=== PATIENT | female | born 1960 | race Caucasian/White ===

== ENCOUNTER 2018-09-02 01:04 | Emergency (ER) | payer SELFPAY ==
[2018-09-02] MEDS ORDERED: ASPIRIN 81 MG TABLET, CHEWABLE PO ONE (02:31)
--- NOTE | 2018-09-02 02:46 | ER Document Report ---
ED General - General Chief Complaint: Chest Pain Stated Complaint: CHEST PAIN Time Seen by Provider: 09/02/18 02:45 Primary Care Provider: JOSHUA HOLCOMB MD [ACTIVE STAFF] - Follow up in 3-5 days (call the office this morning to make a close follow up appointment.) NIECY NY MD [ACTIVE STAFF] - Follow up in 3-5 days (call office this am to make a close follow up appointment) Notes: Patient is a 57-year-old female presents with complaint of chest pain. Patient states she was watching TV and had some chest tightness and felt as if she could not breathe. Patient says that she has been very stressed and her stress was building up all night. She feels that this is stress related. She has no history of coronary disease. She does have a heart murmur but is unsure what causes heart heart murmur. She has had the murmur for over 5 years. She has no history of high blood pressure. No history of diabetes. She does have some family history of coronary disease. She says her symptoms eventually resolved when she relaxes. She currently does not have any symptoms at this time. TRAVEL OUTSIDE OF THE [place] IN LAST 30 DAYS: No - Related Data Allergies/Adverse Reactions: hypochlorous acid [From Alevicyn Dermal] Allergy (Verified 09/02/18 02:17) meperidine [From Demerol] Allergy (Verified 09/02/18 02:16) sodium chloride [From Alevicyn Dermal] Allergy (Verified 09/02/18 02:17) sodium phosphate [From Alevicyn Dermal] Allergy (Verified 09/02/18 02:17) sodium sulfate [From Alevicyn Dermal] Allergy (Verified 09/02/18 02:17) Past Medical History - Social History Smoking Status: Current Some Day Smoker Chew tobacco use (# tins/day): No Frequency of alcohol use: None Drug Abuse: None Family History: Reviewed & Not Pertinent Patient has suicidal ideation: No Patient has homicidal ideation: No Renal/ Medical History: Denies: Hx Peritoneal Dialysis Past Surgical History: Reports: Hx Appendectomy, Hx Hysterectomy Review of Systems - Review of Systems Notes: My Normal Review Basic REVIEW OF SYSTEMS: CONSTITUTIONAL : Denies fever, chills, or sweats. Denies recent illness. EENT: Denies eye, ear, throat, or mouth pain or symptoms. Denies nasal or sinus congestion. CARDIOVASCULAR: Chest tightness. RESPIRATORY: [place] short of breath. GASTROINTESTINAL: Denies abdominal pain. Denies nausea, vomiting, or diarrhea. MUSCULOSKELETAL: Denies neck or back pain or joint pain or swelling. SKIN: Denies rash or skin lesions. NEUROLOGICAL: Denies altered mental status or loss of consciousness. Denies headache. Denies weakness or paralysis or loss of use of either side. Denies problems with gait or speech. Denies sensory or motor loss. ALL OTHER SYSTEMS REVIEWED AND NEGATIVE. Physical Exam - Vital signs Vitals: Temp Pulse Resp BP Pulse Ox 97.7 F 95 20 152/90 H 98 09/02/18 01:18 09/02/18 01:18 09/02/18 01:18 09/02/18 01:18 09/02/18 01:18 - Notes Notes: General Appearance: Well nourished, alert, cooperative, no acute distress, no o bvious discomfort. Well-appearing. Vitals: reviewed, See vital signs table. Head: no swelling or tenderness to the head Eyes: PERRL, EOMI, Conjuctiva clear Mouth: No decreasd moisturephadenopathy Neck: Supple, no neck tenderness, No thyromegaly Lungs: No wheezing, No rales, No rhonci, No accessory muscle use, good air exchange bilaterally. Heart: Normal rate, Regular rythm, systolic murmur heard best over the right sternal border. Abdomen: Normal BS, soft, No rigidity, No abdominal tenderness, No guarding, no rebound, no abdominal masses, no organomegaly Extremities:good pulses in all extremities, no swelling or tenderness in the extremities, no edema. Skin: warm, dry, appropriate color, no rash Neuro: speech clear, oriented x 3, normal affect, responds appropriately to questions. Course - Re-evaluation Re-evalutation: 09/02/18 03:56 Patient's blood work has come back. I told her I have multiple concerns for her being that should her hemoglobin is only 7.1. She does not remember having history of anemia in the past. She said the last time she had a blood work done was a year and a half ago. She just recently moved down here so she does not have a doctor in the area. She says that she does have a lot of stress and anxiety her life which does cause to have difficulty sleeping. She says she just wants to go home. I did recommend that we do a guaiac stool test to see if there is any evidence of blood in her stool. She refuses. I recommend her staying for admission so that we could give her blood transfusion and to follow her cardiac enzymes. She refuses this as well. Informed her that even though that her chest pain seems like it is probably related to stress I still cannot rule out the possibility of the pain coming from her heart especially since she is so anemic. Explained this to her and her . They both show understanding of this but patient says that she does not want to stay and that she wants to go home. She said she would follow-up closely with any doctor I refer her to. I informed her and her that worsening anemia could cause ischemia to her heart which could cause a heart attack. Explained to her that hemoglobin is what carries oxygen to all the vital organs and therefore it is necessary that it is at a appropriate level. She shows understanding of this but still refuses to stay. I informed her that even though she is leaving AGAINST MEDICAL ADVICE I would start her on iron supplementation and refer her to hematology and cardiology as I feel this is what is best for her. I informed her that we want what is best for her and that we would be happy to reevaluate her at any time and in fact encouraged her return to ER anytime soon so we can recheck her and do further workup as to why her hemoglobin is low and also to evaluate her for her chest pain. Patient shows appreciation of this and will be discharged as she requests. She request something to help her sleep. I will give her a few tablets of Vistaril to go home with. I strongly encouraged her return to ER anytime and to follow-up with the providers have referred her to. Patient has good linear thought process is able to answer all my questions appropriately and show understanding of what I am telling her. Patient not show any evidence of confusion and does not demonstrate abnormal thought process and therefore I do not feel that I can keep her against her will. Dictation of this chart was performed using voice recognition software; therefore, there may be some unintended grammatical errors. - Vital Signs Vital signs: Temp Pulse Resp BP Pulse Ox 97.7 F 95 16 136/86 H 97 09/02/18 01:18 09/02/18 01:18 09/02/18 02:01 09/02/18 02:01 09/02/18 02:32 - Laboratory Result Diagrams: 09/02/18 01:57 09/02/18 01:57 Laboratory results interpreted by me: 09/02/18 09/02/18 01:57 01:57 RBC 3.38 L Hgb 7.1 L Hct 23.4 L MCV 69 L MCH 20.9 L MCHC 30.2 L RDW 18.8 H Sodium 146.7 H Chloride 111 H AST 115 H Alkaline Phosphatase 166 H Creatine Kinase 185 H - EKG Interpretation by Me Additional EKG results interpreted by me: 09/02/18 02:45 EKG is reviewed and interpreted by me. EKG shows sinus rhythm with a rate of [address] segment elevation or depression. No ischemic T wave inversions. [place] interval, QRS duration, QT intervals are within normal range. Old EKG for comparison is unavailable at this time. Discharge - Discharge Clinical Impression: Anxiety Anemia Qualifiers: Anemia type: unspecified type Qualified Code(s): D64.9 - Anemia, unspecified Chest pain Qualifiers: Chest pain type: unspecified Qualified Code(s): R07.9 - Chest pain, unspecified Insomnia Qualifiers: Insomnia type: unspecified Qualified Code(s): G47.00 - Insomnia, unspecified Disposition: AGAINST MEDICAL ADVICE Additional Instructions: You have very low hemoglobin. You hemoglobin is at a level where we would consider giving you blood. As discussed with you, I do not know the exact cause of why your hemoglobin is low. This could be related to low iron or could be related to you losing blood somewhere in your body. The most likely source of losing blood would be the gastrointestinal tract. As discussed with you, I recommend admission to the hospital and receiving a unit of blood and to cont inue to look at your heart and to look for sources of bleeding such as doing testing looking at the GI tract. My concern is that worsening low blood counts could lead to things such as heart attack or low blood pressure. I respect your right to make a decision to leave AGAINST MEDICAL ADVICE. We still want what is best for you and therefore want you to return to the ER anytime as we are happy to reevaluate you and help you in any way we can. Being that you are choosing to leave please follow-up closely with the philanthropy officer, Dr. Holcomb, and the marine structural designer, Dr. Jarquin. Please return to the ER anytime for reevaluation. You should immediately return to the ER or call an ambulance if you have recurrent chest pain, difficulty breathing, lightheadedness, passing out episodes, or if you feel unwell in any way. Prescriptions: Docusate Sodium [Colace 100 mg Capsule] 100 mg PO DAILY #30 capsule Ferrous Sulfate [Feosol] 325 mg PO DAILY #30 tablet Referrals: NIECY NY MD [ACTIVE STAFF] - Follow up in 3-5 days (call office this am to make a close follow up appointment) JOSHUA HOLCOMB MD [ACTIVE STAFF] - Follow up in 3-5 days (call the office this morning to make a close follow up appointment.)
[2018-09-02 03:04] LABS: HEMATOCRIT 23.4 % (36.0-47.0); MEAN CORPUSCULAR HEMOGLOBIN 20.9 pg (27.0-33.4); MEAN CORPUSCULAR HGB CONC 30.2 g/dL (32.0-36.0); MEAN CORPUSCULAR VOLUME 69 fl (80-97); PLATELET COUNT 216 10^3/uL (150-450); RED BLOOD COUNT 3.38 10^6/uL (3.72-5.28); RED CELL DISTRIBUTION WIDTH 18.8 % (11.5-14.0); WHITE BLOOD COUNT 4.2 10^3/uL (4.0-10.5)
[2018-09-02 03:07] LABS: ALANINE AMINOTRANSFERASE 39 U/L (9-52); ALBUMIN 4.4 g/dL (3.5-5.0); ALKALINE PHOSPHATASE 166 U/L (38-126); ANION GAP 11 (5-19); ASPARTATE AMINO TRANSFERASE 115 U/L (14-36); BILIRUBIN,DIRECT 0.3 mg/dL (0.0-0.4); BILIRUBIN,TOTAL 0.4 mg/dL (0.2-1.3); BLOOD UREA NITROGEN 10 mg/dL (7-20); CALCIUM 8.4 mg/dL (8.4-10.2); CARBON DIOXIDE 25 mmol/L (22-30); CHLORIDE 111 mmol/L (98-107); CREATINE KINASE 185 U/L (30-135); GLUCOSE 92 mg/dL (75-110); POTASSIUM 3.8 mmol/L (3.6-5.0); SODIUM 146.7 mmol/L (137-145); TOTAL PROTEIN 7.5 g/dL (6.3-8.2)
[2018-09-02 03:19] LABS: HEMOGLOBIN 7.1 g/dL (12.0-15.5)
[2018-09-02 03:22] LABS: ABSOLUTE LYMPHOCYTES# (MANUAL) 1.2 10^3/uL (0.5-4.7); ABSOLUTE MONOCYTES # (MANUAL) 0.3 10^3/uL (0.1-1.4); ABSOLUTE NEUTROPHILS# (MANUAL) 2.7 10^3/uL (1.7-8.2); ANISOCYTOSIS 2+; BASOPHILS % (MANUAL) 0 % (0-2); EOSINOPHILS % (MANUAL) 2 % (0-6); LYMPHOCYTES % (MANUAL) 28 % (13-45); MONOCYTES % (MANUAL) 6 % (3-13); PLATELET COMMENT ADEQUATE; POLYCHROMASIA 2+; SEGMENTED NEUTROPHILS % (MAN) 64 % (42-78); TOTAL CELLS COUNTED 100; TOXIC GRANULATION 1+; TROPONIN I < 0.012 ng/mL
--- NOTE | 2018-09-02 03:48 | RADIOLOGY REPORT (SQ) ---
EXAM DESCRIPTION: XR CHEST 1 VIEW COMPLETED DATE/TME: 09/02/2018 02:31 CLINICAL HISTORY: 57 years, Female, chest pain COMPARISON: None. NUMBER OF VIEWS: 1 TECHNIQUE: Portable chest LIMITATIONS: None. FINDINGS: The heart size is normal. Osteopenia. Atheromatous change thoracic aorta. Lungs are clear. No pneumothorax IMPRESSION: No acute cardiopulmonary process copyright 2010 [employer]- All Rights Reserved
[2018-09-02] MEDS ORDERED: HYDROXYZINE PAMOATE 25 MG CAPSULE (4 CAP/ER DISP) PO PRN (03:53)
[2018-09-02 04:03] VITALS: BP 131/83
--- NOTE | 2018-09-02 21:26 | EKG REPORT ---
SEVERITY:- NORMAL ECG - SINUS RHYTHM : Confirmed by: Sherry Jarquin 02-Sep-2018 21:25:35
== END 2018-09-02 04:15 | disposition left against medical advice (07) ==
LOC: ER 01:04
DX: F41.9 Anxiety disorder, unspecified (principal); D64.9 Anemia, unspecified; G47.00 Insomnia, unspecified; R07.89 Other chest pain; R06.02 Shortness of breath; F17.200 Nicotine dependence, unspecified, uncomplicated; Z82.49 Family history of ischemic heart disease and other diseases of the circulatory system; Z88.8 Allergy status to other drugs, medicaments and biological substances; Z88.5 Allergy status to narcotic agent; Z53.20 Procedure and treatment not carried out because of patient's decision for unspecified reasons
CPT/HCPCS: 93005; 99285; 36415; 82553; 82550; 85025; 80053; 84484; 71045; 93010; J3490

== ENCOUNTER 2018-10-21 13:51 | Outpatient (CLI) | payer OTHER ==
[~2018-10-21 13:51] MED LIST: FERUMOXYTOL (NON-ESRD) 510 MG/NS 100 ML IV PRN; NORMAL SALINE 250 ML IV PRN
[2018-10-21 14:53] VITALS: BP 106/65
== END 2018-10-21 16:09 | disposition home or self-care (01) ==
LOC: II 13:51 → 5TH 13:52 → II 16:09
PROVIDERS: ATTEND Internal Medicine
PROC: 3E02340 Introduction of Influenza Vaccine into Muscle, Percutaneous Approach (ICD-10-PCS; principal; 2018-10-21)
PROC: 3E033GC Introduction of Other Therapeutic Substance into Peripheral Vein, Percutaneous Approach (ICD-10-PCS; 2018-10-21)
DX: D50.8 Other iron deficiency anemias (principal); K90.9 Intestinal malabsorption, unspecified; Z23 Encounter for immunization
CPT/HCPCS: 90686; 96365; 96372; G0008; Q0138; 90471

== ENCOUNTER 2018-10-28 14:02 | Outpatient (CLI) | payer OTHER ==
[2018-10-28 14:46] VITALS: BP 86/62
== END 2018-10-28 15:48 | disposition home or self-care (01) ==
LOC: II 14:02 → 5TH 14:28 → II 15:48
PROVIDERS: ATTEND Internal Medicine
DX: D50.8 Other iron deficiency anemias (principal); K90.9 Intestinal malabsorption, unspecified
CPT/HCPCS: 96367; Q0138

== ENCOUNTER 2019-03-09 13:00 | Inpatient (IN) | payer OTHER ==
[2019-03-09] MEDS ORDERED: NORMAL SALINE 1000 ML 1,000 ML IV ONE ×4 (13:27→15:11)
[2019-03-09] MEDS ORDERED: PANTOPRAZOLE SODIUM 40 MG VIAL IV ONE (13:28)
[2019-03-09] MEDS ORDERED: ONDANSETRON HCL INJ/PF 4 MG/2 ML SDV IV ONE (13:28)
[2019-03-09 13:33] LABS: VENOUS BLOOD BASE EXCESS -1.6 mmol/L; VENOUS BLOOD HCO3 21.2 mmol/L (20-32); VENOUS BLOOD PCO2 29.9 mmHg (35-63); VENOUS BLOOD PH 7.47 (7.30-7.42)
--- NOTE | 2019-03-09 13:34 | ER Document Report ---
ED Medical Screen (RME) - General Stated Complaint: VOMITING Notes: 58-year-old female was brought in by significant other for vomiting coffee- ground emesis and altered mental status. Patient has a long history of alcoholism and bleeding ulcers. Pancreatitis. The patient has now been well as of late. They have noticed that she is become more somnolent. She is been vomiting coffee-ground emesis. Significant other brought her in for evaluation and treatment. TRAVEL OUTSIDE OF THE [place] IN LAST 30 DAYS: No - Related Data Allergies/Adverse Reactions: hypochlorous acid [From Alevicyn Dermal] Allergy (Verified 11/15/18 10:21) meperidine [From Demerol] Allergy (Verified 11/15/18 10:21) sodium chloride [From Alevicyn Dermal] Allergy (Verified 11/15/18 10:21) sodium phosphate [From Alevicyn Dermal] Allergy (Verified 11/15/18 10:21) sodium sulfate [From Alevicyn Dermal] Allergy (Verified 11/15/18 10:21) Past Medical History Renal/ Medical History: Denies: Hx Peritoneal Dialysis Psychiatric Medical History: Reports: Hx Anxiety Past Surgical History: Reports: Hx Appendectomy, Hx Hysterectomy Physical Exam - Notes Notes: Patient is jaundiced. She is altered she will respond to some verbal stimuli all and all painful stimuli. She she has some diminished capillary refill to nailbeds. Blood pressure is 85 systolic. Course - Re-evaluation Re-evalutation: 03/09/19 13:33 Patient comes in with multiple issues. She looks to be an upper GI bleed. She has had bleeding ulcers in the past she is altered will send an ammonia we will send in alcohol. She is hypotensive in the 80s. We will give her 2 L of IV fluids. We will type and screen her. She may be anemic from her GI bleeding. Also will check an ammonia. - Laboratory Result Diagrams: 03/09/19 13:15 03/09/19 13:15
[2019-03-09 13:40] LABS: HEMATOCRIT 35.2 % (36.0-47.0); HEMOGLOBIN 11.5 g/dL (12.0-15.5); MEAN CORPUSCULAR HGB CONC 32.8 g/dL (32.0-36.0); MEAN CORPUSCULAR VOLUME 97 fl (80-97); PLATELET COUNT 162 10^3/uL (150-450); RED BLOOD COUNT 3.61 10^6/uL (3.72-5.28); RED CELL DISTRIBUTION WIDTH 20.6 % (11.5-14.0); WHITE BLOOD COUNT 9.8 10^3/uL (4.0-10.5)
[2019-03-09 13:41] LABS: INTERNATIONAL RATION (INR) 3.01; PROTHROMBIN TIME 31.8 SEC (11.4-15.4)
[2019-03-09 13:55] LABS: ALBUMIN 3.3 g/dL (3.5-5.0); ALKALINE PHOSPHATASE 313 U/L (38-126); ASPARTATE AMINO TRANSFERASE 452 U/L (14-36); BILIRUBIN,DIRECT 13.9 mg/dL (0.0-0.4); BILIRUBIN,TOTAL 15.9 mg/dL (0.2-1.3); BLOOD UREA NITROGEN 47 mg/dL (7-20); CALCIUM 8.8 mg/dL (8.4-10.2); CARBON DIOXIDE 21 mmol/L (22-30); CHLORIDE 85 mmol/L (98-107); POTASSIUM 5.1 mmol/L (3.6-5.0); TOTAL PROTEIN 6.6 g/dL (6.3-8.2)
[2019-03-09 13:56] LABS: CREATINE KINASE 147 U/L (30-135); SALICYLATE 2.3 mg/dL (2.0-20.0)
[2019-03-09 13:57] LABS: ACETAMINOPHEN < 10 ug/mL (10-30); ALCOHOL < 10 mg/dL (NONE DETECTED)
[2019-03-09] MEDS ORDERED: PIPERACILLIN/TAZOBACTAM 3.375 GM VIAL IV ONE (14:09)
[2019-03-09 14:11] LABS: ABSOLUTE LYMPHOCYTES# (MANUAL) 1.7 10^3/uL (0.5-4.7); ABSOLUTE MONOCYTES # (MANUAL) 1.1 10^3/uL (0.1-1.4); BAND NEUTROPHILS % (MANUAL) 2 % (3-5); BASOPHILS % (MANUAL) 0 % (0-2); EOSINOPHILS % (MANUAL) 0 % (0-6); LYMPHOCYTES % (MANUAL) 17 % (13-45); MONOCYTES % (MANUAL) 11 % (3-13); NUCLEATED RED BLOOD CELLS 2 /100 WBC (0); SEGMENTED NEUTROPHILS % (MAN) 70 % (42-78); TOTAL CELLS COUNTED 100
[2019-03-09 14:12] LABS: ANISOCYTOSIS 2+; PLATELET COMMENT ADEQUATE; TARGET CELLS 1+
--- NOTE | 2019-03-09 14:16 | RADIOLOGY REPORT (SQ) ---
EXAM DESCRIPTION: CT HEAD WITHOUT COMPLETED DATE/TIME: 03/09/2019 2:01 pm REASON FOR STUDY: abd pain AMS COMPARISON: None. TECHNIQUE: Axial images acquired through the brain without intravenous contrast. Images reviewed wi th bone, brain and subdural windows. Additional sagittal and coronal reconstructions were generated. Images stored on PACS. All CT scanners at this facility use dose modulation, iterative reconstruction, and/or weight based d osing when appropriate to reduce radiation dose to as low as reasonably achievable (ALARA). [facility]: Dose Right [facility]: CareDose [facility]: Dose Right [facility]: Teradose 4D [facility]: [employer] RADIATION DOSE: CT Rad equipment meets quality standard of care and radiation dose reduction techniq ues were employed. CTDIvol: 53.2 mGy. DLP: 1981 mGy-cm. mGy. LIMITATIONS: None. FINDINGS: VENTRICLES: Normal size and contour. CEREBRUM: No masses. No hemorrhage. No midline shift. No evidence for acute infarction. Normal gra y/white matter differentiation. No areas of low density in the white matter. CEREBELLUM: No masses. No hemorrhage. No alteration of density. No evidence for acute infarction. EXTRAAXIAL SPACES: No fluid collections. No masses. ORBITS AND GLOBE: No intra- or extraconal masses. Normal contour of globe without masses. CALVARIUM: No fracture. PARANASAL SINUSES: No fluid or mucosal thickening. SOFT TISSUES: No mass or hematoma. OTHER: No other significant finding. IMPRESSION: NORMAL BRAIN CT WITHOUT CONTRAST. EVIDENCE OF ACUTE STROKE: NO. COMMENT: Quality ID # 436: Final reports with documentation of one or more dose reduction techniques (e.g., Automated exposure control, adjustment of the mA and/or kV according to patient size, use of iterative reconstruction technique) TECHNICAL DOCUMENTATION: JOB ID: [id number] [employer]- All Rights Reserved Reading location - IP/workstation name: [email or web address]
--- NOTE | 2019-03-09 14:18 | RADIOLOGY REPORT (SQ) ---
EXAM DESCRIPTION: CHEST SINGLE VIEW COMPLETED DATE/TIME: 03/09/2019 2:05 pm REASON FOR STUDY: vomiting COMPARISON: 09/02/2018 EXAM PARAMETERS: NUMBER OF VIEWS: One view. TECHNIQUE: Single frontal radiographic view of the chest acquired. RADIATION DOSE: NA LIMITATIONS: None. FINDINGS: LUNGS AND PLEURA: Low volume examination. No opacities, masses or pneumothorax. No pleura l effusion. MEDIASTINUM AND HILAR STRUCTURES: No masses. Contour normal. HEART AND VASCULAR STRUCTURES: Cardiomegaly. BONES: No acute findings. HARDWARE: None in the chest. OTHER: No other significant finding. IMPRESSION: Cardiomegaly without acute abnormality of the lungs in low volume AP projection. TECHNICAL DOCUMENTATION: JOB ID: [id number] [employer]- All Rights Reserved Reading location - IP/workstation name: [email or web address]
[2019-03-09 14:26] LABS: ANION GAP 25 (5-19)
[2019-03-09 14:27] LABS: GLUCOSE 44 mg/dL (75-110)
[2019-03-09] MEDS ORDERED: DEXTROSE 50%-WATER 25 GM/50 ML DISP.SYRIN IV ONE (14:28)
[2019-03-09 14:42] LABS: APPEARANCE,URINE CLOUDY; BILIRUBIN,URINE MODERATE (NEGATIVE); COLOR,URINE AMBER; GLUCOSE, URINE 50 mg/dL (NEGATIVE); KETONES,URINE TRACE mg/dL (NEGATIVE); LEUKOCYTE ESTERASE,URINE NEGATIVE (NEGATIVE); NITRITE,URINE NEGATIVE (NEGATIVE); PROTEIN,URINE 30 mg/dL (NEGATIVE); URINE SPECIFIC GRAVITY 1.018
--- NOTE | 2019-03-09 14:47 | RADIOLOGY REPORT (SQ) ---
EXAM DESCRIPTION: CT ABD/PELVIS NO ORAL OR IV COMPLETED DATE/TIME: 03/09/2019 2:01 pm REASON FOR STUDY: abd pain AMS COMPARISON: None. TECHNIQUE: CT scan of the abdomen and pelvis performed without intravenous or oral contrast. Images reviewed with lung, soft tissue, and bone windows. Reconstructed coronal and sagittal MPR images revi ewed. All images stored on PACS. All CT scanners at this facility use dose modulation, iterative reconstruction, and/or weight based d osing when appropriate to reduce radiation dose to as low as reasonably achievable (ALARA). [facility]: Dose Right [facility]: CareDose [facility]: Dose Right [facility]: Teradose 4D [facility]: [employer] RADIATION DOSE: CT Rad equipment meets quality standard of care and radiation dose reduction techniq ues were employed. CTDIvol: 14.4 mGy. DLP: 815 mGy-cm.mGy. LIMITATIONS: None. FINDINGS: LOWER CHEST: No significant findings. No nodules or infiltrates. NON-CONTRASTED LIVER, SPLEEN, ADRENALS: There is marked hypoattenuation of the liver. No masses. Th e spleen is normal. The adrenals are normal. PANCREAS: No masses. No peripancreatic inflammatory changes. GALLBLADDER: Surgically absent. RIGHT KIDNEY AND URETER: No suspicious masses. Assessment limited by lack of IV contrast. No signif icant calcifications. No hydronephrosis or hydroureter. LEFT KIDNEY AND URETER: No suspicious masses. Assessment limited by lack of IV contrast. No signifi cant calcifications. No hydronephrosis or hydroureter. AORTA AND RETROPERITONEUM: No aneurysm. No retroperitoneal masses or adenopathy. BOWEL AND PERITONEAL CAVITY: No obvious masses or inflammatory changes. No free fluid. APPENDIX: Not identified. PELVIS, BLADDER, AND ABDOMINAL WALL:No abnormal masses. No free fluid. Bladder normal. BONES: No significant findings. OTHER: No other significant finding. IMPRESSION: There appears to be marked hepatic steatosis. The liver is somewhat heterogeneous. If there is a history of neoplasm, diffuse hepatic metastatic disease cannot be excluded. COMMENT: Quality ID # [id number]: Final reports with documentation of one or more dose reduction techniques (e.g., Automated exposure control, adjustment of the mA and/or kV according to patient size, use of iterative reconstruction technique) TECHNICAL DOCUMENTATION: JOB ID: [id number]- All Rights Reserved Reading location - IP/workstation name: [email or web address]
[2019-03-09 14:53] LABS: URINE AMPHETAMINES SCREEN NEGATIVE; URINE BARBITURATES SCREEN NEGATIVE; URINE BENZODIAZEPINES SCREEN NEGATIVE; URINE COCAINE SCREEN NEGATIVE; URINE MARIJUANA (THC) SCREEN NEGATIVE; URINE METHADONE SCREEN NEGATIVE; URINE PHENCYCLIDINE SCREEN NEGATIVE
--- NOTE | 2019-03-09 14:57 | ER Document Report ---
ED General - General Chief Complaint: GI Bleeding Stated Complaint: VOMITING Notes: 58-year-old female was brought in by significant other for vomiting coffee- ground emesis and altered mental status. Patient has a long history of alcoholism and bleeding ulcers. Pancreatitis. The patient has now been well as of late. They have noticed that she is become more somnolent. She is been vomiting coffee-ground emesis. Significant other brought her in for evaluation and treatment. Family is concerned about infection. TRAVEL OUTSIDE OF THE [place] IN LAST 30 DAYS: No - Related Data Allergies/Adverse Reactions: hypochlorous acid [From Alevicyn Dermal] Allergy (Verified 03/09/19 14:35) meperidine [From Demerol] Allergy (Verified 03/09/19 14:35) sodium chloride [From Alevicyn Dermal] Allergy (Verified 03/09/19 14:35) sodium phosphate [From Alevicyn Dermal] Allergy (Verified 03/09/19 14:35) sodium sulfate [From Alevicyn Dermal] Allergy (Verified 03/09/19 14:35) Past Medical History - Social History Smoking Status: Unknown if Ever Smoked Family History: Reviewed & Not Pertinent Renal/ Medical History: Denies: Hx Peritoneal Dialysis Psychiatric Medical History: Reports: Hx Anxiety Past Surgical History: Reports: Hx Appendectomy, Hx Hysterectomy Review of Systems - Review of Systems Constitutional: denies: Chills, Fever Cardiovascular: Edema. denies: Chest pain, Palpitations Respiratory: Short of breath Gastrointestinal: Abdominal pain, Nausea, Vomiting Skin: Other - Jaundice Neurological/Psychological: Confusion -: Yes All other systems reviewed and negative Physical Exam - Vital signs Vitals: Resp BP 21 H 76/31 L 03/09/19 13:08 03/09/19 13:08 - Notes Notes: GENERAL_APPEARANCE: well_nourished, somnolent, noticeable trouble breathing VITALS: reviewed, see vital signs table. HEAD: no_swelling\tenderness on the head. EYES: PERRL, EOMI, conjunctiva_clear. NOSE: no_nasal_discharge. MOUTH: Dry mucous membranes THROAT: no_tonsilar_inflammation, no_airway_obstruction. no_lymphadenopathy NECK: supple, no_neck_tenderness, (-)thyromegaly. BACK: no_back_tenderness. CHEST_WALL: no_chest_tenderness. No crepitus or subcutaneous emphysema LUNGS: no_wheezing, basilar crackles, no_rhonchi, mild accessory muscle use, good air exchange bilateral. HEART: normal_rate, normal_rhythm, normal_S1, normal_S2, (-)S3, (-)S4, no_murmur, no_rub. ABDOMEN:soft, no_abd_tenderness, (-)guarding, (-)rebound, no_organomegaly, no_abd_masses. EXTREMITIES:good pulses in all_extremities, no_swelling\tenderness in the extremities, no_edema. SKIN: warm, dry, jaundice_color, no_rash. MENTAL_STATUS: speech_low and slurred, oriented_to person but not place or time NEURO: Neg Motor or Sensory Deficits on exam, CN 2-12 intact, DTR 2+ symmetric x 4, unable to test cerebellar signs Course - Re-evaluation Re-evalutation: 03/09/19 14:54 58-year-old female with a history of alcoholism cirrhosis presents to the ER with altered mental status. The patient has a history of bleeding ulcers and has had issues with black tarry stools and coffee-ground emesis in the past she is thrown up several times and it is been coffee-ground emesis or stools today are black and tarry and she is guaiac positive from a low hemoglobin here is greater than 11 she has been hypotensive. Her creatinine is very elevated. Patient appears to be in acute renal failure. Likely she is is very dry we will continue fluid resuscitating her. She does trigger the sepsis criteria but this may be all dehydration cultures were done lactic acid is very elevated above 9. We will give the patient a dose of Zosyn. Perfusion reexamination done at 1445 -capillary refill is still slowed and extremities. Pulses are present lungs are much more improved and clear with the BiPAP. Cardiovascular regular rate and rhythm not tachycardic. Continue with IV fluids. Still trying to addendum by the source of infection if there is any. This may be likely due to acute renal failure. Profound hypovolemia due to dehydration The patient will be signed out the oncoming physician. Please see his note for disposition and further testing. - Vital Signs Vital signs: Temp Pulse Resp BP Pulse Ox 97.4 F 97 23 H 87/61 L 100 03/09/19 13:37 03/09/19 13:37 03/09/19 14:30 03/09/19 14:30 03/09/19 14:30 - Laboratory Result Diagrams: 03/09/19 13:15 03/09/19 13:15 Laboratory results interpreted by me: 03/09/19 03/09/19 03/09/19 13:15 13:15 13:15 RBC 3.61 L Hgb 11.5 L Hct 35.2 L RDW 20.6 H Band Neutrophils % 2 L PT 31.8 H VBG pH VBG pCO2 Sodium 131.0 L Potassium 5.1 H Chloride 85 L Carbon Dioxide 21 L Anion Gap 25 H BUN 47 H Creatinine 6.79 H Est GFR ( Amer) 8 L Est GFR (Non-Af Amer) 6 L Glucose 44 L Lactic Acid Total Bilirubin 15.9 H Direct Bilirubin 13.9 H AST 452 H Alkaline Phosphatase 313 H Ammonia Creatine Kinase Albumin 3.3 L Lipase 564.3 H Urine Protein Urine Glucose (UA) Urine Ketones Urine Blood Urine Bilirubin Urine Urobilinogen Urine Ascorbic Acid Acetaminophen 03/09/19 03/09/19 03/09/19 13:15 13:15 13:15 RBC Hgb Hct RDW Band Neutrophils % PT VBG pH 7.47 H VBG pCO2 29.9 L Sodium Potassium Chloride Carbon Dioxide Anion Gap BUN Creatinine Est GFR ( Amer) Est GFR (Non-Af Amer) Glucose Lactic Acid 9.3 H Total Bilirubin Direct Bilirubin AST Alkaline Phosphatase Ammonia 99.7 H Creatine Kinase Albumin Lipase Urine Protein Urine Glucose (UA) Urine Ketones Urine Blood Urine Bilirubin Urine Urobilinogen Urine Ascorbic Acid Acetaminophen 03/09/19 03/09/19 13:15 14:24 RBC Hgb Hct RDW Band Neutrophils % PT VBG pH VBG pCO2 Sodium Potassium Chloride Carbon Dioxide Anion Gap BUN Creatinine Est GFR ( Amer) Est GFR (Non-Af Amer) Glucose Lactic Acid Total Bilirubin Direct Bilirubin AST Alkaline Phosphatase Ammonia Creatine Kinase 147 H Albumin Lipase Urine Protein 30 H Urine Glucose (UA) 50 H Urine Ketones TRACE H Urine Blood SMALL H Urine Bilirubin MODERATE H Urine Urobilinogen 4.0 H Urine Ascorbic Acid 20 H Acetaminophen < 10 L Critical Care Note - Critical Care Note Total time excluding time spent on procedures (mins): 31 Discharge - Discharge Clinical Impression: Hyperammonemia, Hypokalemia Altered mental status Qualifiers: Altered mental status type: disorientation Qualified Code(s): R41.0 - Disorientation, unspecified Acute renal failure Qualifiers: Acute renal failure type: unspecified Qualified Code(s): N17.9 - Acute kidney failure, unspecified Condition: Critical Disposition: ADMITTED INPATIENT
[2019-03-09] MEDS ORDERED: ACETAMINOPHEN 325 MG TABLET NG PRN (16:36)
[2019-03-09] MEDS ORDERED: IPRATROPIUM/ALBUTEROL 0.5-2.5 MG/3 ML AMPUL NEB PRN (16:36)
[2019-03-09] MEDS ORDERED: ONDANSETRON HCL INJ/PF 4 MG/2 ML SDV IV PRN (16:36)
[2019-03-09] MEDS ORDERED: MAG HYDROX/AL HYDROX/SIMETH SUSP 30 ML UDCUP NG PRN (16:36)
[2019-03-09] MEDS ORDERED: PHARMACY COMMUNICATION ORDER MC NR (16:45)
[2019-03-09] MEDS ORDERED: DEXTROSE 50%-WATER 25 GM/50 ML DISP.SYRIN IV PRN ×2 (16:56)
[2019-03-09] MEDS ORDERED: GLUCAGON,HUMAN RECOMB 1 MG INJ IM PRN (16:56)
[2019-03-09] MEDS ORDERED: DEXTROSE 40% GEL 15 GM TUBE PO PRN ×2 (16:56)
[2019-03-09] MEDS ORDERED: DIAZEPAM INJ 10 MG/2 ML DISP.SYRIN IV PRN (17:14)
[2019-03-09] MEDS: RINGERS SOLUTION,LACTATED 1,000 ML IV PRN ×2 (17:19→21:20)
[2019-03-09] MEDS ORDERED: HALOPERIDOL LACTATE INJ 5 MG/1 ML VIAL IV PRN (17:21)
[2019-03-09] MEDS ORDERED: PIPERACILLIN SODIUM/TAZOBACTAM 2.25 GM in NORMAL SALINE 50 ML IV SCH ×4 (18:00)
[2019-03-09 18:08] LABS: HEMATOCRIT 29.5 % (36.0-47.0); MEAN CORPUSCULAR HEMOGLOBIN 32.8 pg (27.0-33.4); MEAN CORPUSCULAR HGB CONC 33.9 g/dL (32.0-36.0); MEAN CORPUSCULAR VOLUME 97 fl (80-97); PLATELET COUNT 127 10^3/uL (150-450); RED BLOOD COUNT 3.04 10^6/uL (3.72-5.28); RED CELL DISTRIBUTION WIDTH 20.2 % (11.5-14.0); WHITE BLOOD COUNT 8.7 10^3/uL (4.0-10.5)
[2019-03-09] MEDS: INSULIN REG, HUMAN 100 UNIT/ML 3 ML VIAL (PYX) SUBCUT SCH (18:20)
[2019-03-09 18:22] LABS: ALBUMIN 2.6 g/dL (3.5-5.0); ALKALINE PHOSPHATASE 255 U/L (38-126); ANION GAP 17 (5-19); ASPARTATE AMINO TRANSFERASE 487 U/L (14-36); BILIRUBIN,DIRECT 11.8 mg/dL (0.0-0.4); BILIRUBIN,TOTAL 13.6 mg/dL (0.2-1.3); BLOOD UREA NITROGEN 43 mg/dL (7-20); CALCIUM 7.3 mg/dL (8.4-10.2); CARBON DIOXIDE 19 mmol/L (22-30); CHLORIDE 97 mmol/L (98-107); GLUCOSE 105 mg/dL (75-110); TOTAL PROTEIN 5.3 g/dL (6.3-8.2)
[2019-03-09 18:41] LABS: ABSOLUTE LYMPHOCYTES# (MANUAL) 1.9 10^3/uL (0.5-4.7); ABSOLUTE MONOCYTES # (MANUAL) 0.8 10^3/uL (0.1-1.4); BAND NEUTROPHILS % (MANUAL) 1 % (3-5); BASOPHILS % (MANUAL) 0 % (0-2); EOSINOPHILS % (MANUAL) 0 % (0-6); LYMPHOCYTES % (MANUAL) 22 % (13-45); METAMYELOCYTES % (MANUAL) 1 % (0); MONOCYTES % (MANUAL) 9 % (3-13); SEGMENTED NEUTROPHILS % (MAN) 67 % (42-78); SMUDGE CELLS PRESENT; TOTAL CELLS COUNTED 100; TOXIC GRANULATION SLIGHT; TOXIC VACUOLATION PRESENT
[2019-03-09 18:42] LABS: ANISOCYTOSIS 2+; PLATELET CLUMPS PRESENT; PLATELET COMMENT DECREASED; PLATELET LARGE PRESENT; POLYCHROMASIA SLIGHT; TARGET CELLS 1+
[2019-03-09] MEDS ORDERED: PHENYLEPHRINE HCL INJ/PF 10 MG/1 ML SDV ONE (18:55)
[2019-03-09] MEDS: LACTULOSE SYRUP 20 GM/30 ML UDCUP NG SCH ×2 (20:20→21:05)
[2019-03-09] MEDS: PIPERACILLIN SODIUM/TAZOBACTAM 2.25 GM in NORMAL SALINE 50 ML IV SCH (21:00)
--- NOTE | 2019-03-09 21:48 | PDOC H&P ---
History of Present Illness Admission Date/PCP: 03/09/19 16:36 Patient complains of: Confused and unable to provide history History of Present Illness: EN LOUIS is a 58 year old female Past Medical History Past Medical History: Some information was obtained from her , her roommate and old records. Cardiac Medical History: Reports: None Pulmonary Medical History: Reports: None EENT Medical History: Reports: None Neurological Medical History: Reports: None Endocrine Medical History: Reports: None Renal/ Medical History: Reports: None Malignancy Medical History: Reports: None GI Medical History: Reports: Cirrhosis Musculoskeltal Medical History: Reports: None Skin Medical History: Reports: None Psychiatric Medical History: Reports: Alcohol Dependency Hematology: Reports: Anemia Past Surgical History Past Surgical History: Reports: Appendectomy, Cholecystectomy, Hysterectomy Social History Information Source: Friend, [facility] Records Lives with: Friend Smoking Status: Unknown if Ever Smoked Frequency of Alcohol Use: Heavy Hx Recreational Drug Use: No Drugs: None Hx Prescription Drug Abuse: No - Advance Directive Resuscitation Status: Full Code Surrogate healthcare decision maker:: I did discuss the CODE STATUS with the patient's who is the legal decision maker. He wishes full CODE STATUS at this time. Further determinations will be based on her recovery. Her is Cristian Del Rio. Telephone number [phone] Family History Parental Family History Reviewed: No - Patient unable to provide Children Family History Reviewed: No Sibling(s) Family History Reviewed.: No - Patient unable to provide Medication/Allergy Home Medications: No Home Medications 03/09/19 Allergies/Adverse Reactions: hypochlorous acid [From Alevicyn Dermal] Allergy (Verified 03/09/19 14:35) meperidine [From Demerol] Allergy (Verified 03/09/19 14:35) sodium chloride [From Alevicyn Dermal] Allergy (Verified 03/09/19 14:35) sodium phosphate [From Alevicyn Dermal] Allergy (Verified 03/09/19 14:35) sodium sulfate [From Alevicyn Dermal] Allergy (Verified 03/09/19 14:35) Review of Systems ROS unobtainable: Due to mental status - Patient unable to provide Physical Exam Vital Signs: Temp Pulse Resp BP Pulse Ox 97.4 F 97 21 H 87/70 L 100 03/09/19 13:37 03/09/19 13:37 03/09/19 15:51 03/09/19 15:51 03/09/19 15:51 Intake & Output 03/08/19 03/09/19 03/10/19 06:59 06:59 06:59 Intake Total 4000 Balance 4000 Weight 95.254 kg General appearance: PRESENT: mild distress, well-developed, other - Jaundiced Exam: The patient was on BiPAP and so parts of the exam was limited. Head exam: PRESENT: atraumatic, normocephalic Eye exam: PRESENT: conjunctiva pale, scleral icterus Ear exam: PRESENT: normal external ear exam Neck exam: ABSENT: carotid bruit, JVD, lymphadenopathy Respiratory exam: PRESENT: clear to auscultation ermelinda - Anteriorly, symmetrical, tachypnea. ABSENT: accessory muscle use, rales, wheezes Cardiovascular exam: PRESENT: +S1, +S2, tachycardia GI/Abdominal exam: PRESENT: diminished bowel sounds, soft, tenderness - Patient did wince with palpation to the upper abdomen Rectal exam: PRESENT: deferred, other - Stool is guaiac positive Gentrourinary exam: PRESENT: indwelling catheter Extremities exam: ABSENT: calf tenderness, joint swelling, pedal edema Musculoskeletal exam: PRESENT: normal inspection Neurological exam: PRESENT: altered - Unable to interact. Patient confused., awake. ABSENT: alert Skin exam: PRESENT: jaundice Results Laboratory Results: 03/09/19 13:15 03/09/19 13:15 03/09/19 03/09/19 03/09/19 13:15 13:15 13:15 WBC 9.8 RBC 3.61 L Hgb 11.5 L Hct 35.2 L MCV 97 MCH 32.0 MCHC 32.8 RDW 20.6 H Plt Count 162 Seg Neutrophils % Not Reportable Lymphocytes % Not Reportable Monocytes % Not Reportable Eosinophils % Not Reportable Basophils % Not Reportable Absolute Neutrophils Not Reportable Absolute Lymphocytes Not Reportable Absolute Monocytes Not Reportable Absolute Eosinophils Not Reportable Absolute Basophils Not Reportable VBG pH VBG pCO2 VBG HCO3 VBG Base Excess Sodium 131.0 L Potassium 5.1 H Chloride 85 L Carbon Dioxide 21 L Anion Gap 25 H BUN 47 H Creatinine 6.79 H Est GFR ( Amer) 8 L Est GFR (Non-Af Amer) 6 L Glucose 44 L Lactic Acid 9.3 H Calcium 8.8 Total Bilirubin 15.9 H AST 452 H Alkaline Phosphatase 313 H Ammonia Total Protein 6.6 Albumin 3.3 L Lipase 564.3 H Urine Color Urine Appearance Urine pH Ur Specific [place] Urine Protein Urine Glucose (UA) Urine Ketones Urine Blood Urine Nitrite Ur Leukocyte Esterase Urine WBC (Auto) Urine RBC (Auto) Blood Type Antibody Screen 03/09/19 03/09/19 03/09/19 13:15 13:15 13:15 WBC RBC Hgb Hct MCV MCH MCHC RDW Plt Count Seg Neutrophils % Lymphocytes % Monocytes % Eosinophils % Basophils % Absolute Neutrophils Absolute Lymphocytes Absolute Monocytes Absolute Eosinophils Absolute Basophils VBG pH 7.47 H VBG pCO2 29.9 L VBG HCO3 21.2 VBG Base Excess -1.6 Sodium Potassium Chloride Carbon Dioxide Anion Gap BUN Creatinine Est GFR ( Amer) Est GFR (Non-Af Amer) Glucose Lactic Acid Calcium Total Bilirubin AST Alkaline Phosphatase Ammonia 99.7 H Total Protein Albumin Lipase Urine Color Urine Appearance Urine pH Ur Specific [place] Urine Protein Urine Glucose (UA) Urine Ketones Urine Blood Urine Nitrite Ur Leukocyte Esterase Urine WBC (Auto) Urine RBC (Auto) Blood Type B POSITIVE Antibody Screen NEGATIVE 03/09/19 14:24 WBC RBC Hgb Hct MCV MCH MCHC RDW Plt Count Seg Neutrophils % Lymphocytes % Monocytes % Eosinophils % Basophils % Absolute Neutrophils Absolute Lymphocytes Absolute Monocytes Absolute Eosinophils Absolute Basophils VBG pH VBG pCO2 VBG HCO3 VBG Base Excess Sodium Potassium Chloride Carbon Dioxide Anion Gap BUN Creatinine Est GFR ( Amer) Est GFR (Non-Af Amer) Glucose Lactic Acid Calcium Total Bilirubin AST Alkaline Phosphatase Ammonia Total Protein Albumin Lipase Urine Color MARGARET Urine Appearance CLOUDY Urine pH 5.0 Ur Specific [place] 1.018 Urine Protein 30 H Urine Glucose (UA) 50 H Urine Ketones TRACE H Urine Blood SMALL H Urine Nitrite NEGATIVE Ur Leukocyte Esterase NEGATIVE Urine WBC (Auto) 68 Urine RBC (Auto) 9 Blood Type Antibody Screen 03/09/19 03/09/19 13:15 13:15 Creatine Kinase 147 H Troponin I 0.016 Impressions: Chest X-Ray 03/09/19 13:29 IMPRESSION: Cardiomegaly without acute abnormality of the lungs in low volume AP projection. Abdomen/Pelvis CT 03/09/19 13:31 IMPRESSION: There appears to be marked hepatic steatosis. The liver is s omewhat heterogeneous. If there is a history of neoplasm, diffuse hepatic metastatic disease cannot be excluded. Head CT 03/09/19 13:31 IMPRESSION: NORMAL BRAIN CT WITHOUT CONTRAST. EVIDENCE OF ACUTE STROKE: NO. Assessment and Plan - Diagnosis (1) Sepsis Qualifiers: Sepsis type: sepsis due to unspecified organism Sepsis acute organ dysfunction status: with acute organ dysfunction Severe sepsis acute organ dysfunction type: acute liver failure Severe sepsis shock status: with septic shock Is this a current diagnosis for this admission?: Yes Plan: 03/09/2019-the patient presented by ambulance when she was found down by her roommate. They were many empty liquor and wine bottles. There was dried emesis. The patient may have aspirated. The sepsis is likely due to severe dehydration with hypoxemia, hypotension requiring vasopressors, acute kidney injury and acute hepatic failure. She also had an elevated lactic acid. She was started on Zosyn. Cultures are pending. CT scan of the abdomen and pelvis as well as chest x-ray did not identify any suspicious etiologies for infection. She does have cirrhosis. She received 4 L of fluid prior to the admission and I will continue her on lactated Ringer's 250 mL/h. We will repeat chemistries every 6-8 hours as there will be shifting with the aggressive volume resuscitation. Her initial lactic acid was 9.3. She has serial lactic acid levels ordered as well. We will recheck her laboratory studies each morning in addition to the serial studies ordered. (2) Acute kidney injury Is this a current diagnosis for this admission?: Yes Plan: 03/09/2019-it is unknown how long the patient was down prior to her roommate finding her. He called EMS immediately. It is unknown how long she went without adequate oral fluid intake. Her serum creatinine on admission was 6.79. Her BUN was not significantly elevated. This could be an acute renal issue from poor perfusion. I will place consult for nephrology in the morning. We will see how she responds to fluid resuscitation. We will monitor intake and output as well. (3) Dehydration Is this a current diagnosis for this admission?: Yes Plan: The patient will receive aggressive fluid resuscitation. Will reassess often. (4) Pancreatitis Qualifiers: Chronicity: acute Pancreatitis type: biliary Acute pancreatitis complication: no infection or necrosis Qualified Code(s): K85.10 - Biliary acute pancreatitis without necrosis or infection Is this a current diagnosis for this admission?: Yes Plan: This pancreatitis is likely due to alcohol. She did have gallstone pancreatitis with a cholecystectomy several months ago. Conservative therapy. We will give her medications by mouth but no feeding as yet. Continue to monitor chemistries. (5) Hepatic encephalopathy Is this a current diagnosis for this admission?: Yes Plan: The patient suffered acute liver dysfunction. Bilirubin was 16 with an ammonia level of 99. The patient will receive lactulose. We will monitor her ammonia levels. Aggressive fluid resuscitation will also dilute out the concentrated bilirubin and ammonia. (6) Hyponatremia Is this a current diagnosis for this admission?: Yes Plan: 03/09/2019-the patient has minimal hyponatremia. This will be reassessed as her electrolytes will likely be thrown off with the very aggressive fluid resuscitation. We will continue to monitor. (7) Hyperammonemia Is this a current diagnosis for this admission?: Yes Plan: 03/09/2019-elevated ammonia level as above. Lactulose 4 times a day. Monitor ammonia level. (8) ETOH abuse Is this a current diagnosis for this admission?: Yes Plan: 03/09/2019-many empty bottles were found at in the patient's home when she was found down. I have ordered benzodiazepines for expected withdrawal. (9) Cirrhosis Qualifiers: Hepatic cirrhosis type: alcoholic cirrhosis Ascites presence: unspecified Qualified Code(s): K70.30 - Alcoholic cirrhosis of liver without ascites Is this a current diagnosis for this admission?: Yes Plan: 03/09/2019-the patient has a history of cirrhosis. This was noted when she had a cholecystectomy earlier this year. It was also seen on CT scan. With the aggressive fluid resuscitation she may develop ascites. We will monitor and consider paracentesis. Will need to be mindful of potential coagulopathies from liver failure. (10) Acute respiratory failure with hypoxia Is this a current diagnosis for this admission?: Yes Plan: 03/09/2019-the patient exhibited increased work of breathing and hypoxemia. She was placed on BiPAP with oxygen supplementation. Hopefully will be able to wean her from the BiPAP and oxygen. She does not have a primary pulmonary diagnosis but nebulizer treatments will be available if needed. (11) Hyperkalemia Is this a current diagnosis for this admission?: Yes Plan: 03/09/2019-the patient's serum potassium was slightly elevated. I expect the significant drop with the aggressive fluid resuscitation. I did asked that she be placed on the electrolyte replacement protocol while in the ICU. 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
[2019-03-09] MEDS ORDERED: PANTOPRAZOLE SODIUM 40 MG VIAL IV SCH (22:00)
[2019-03-09] MEDS ORDERED: DOPAMINE HCL/DEXTROSE 5%-WATER 800 MG/250 ML RTUINJ IV PRN (22:40)
[2019-03-09 22:49] LABS: HEMATOCRIT 33.6 % (36.0-47.0); HEMOGLOBIN 11.2 g/dL (12.0-15.5); MEAN CORPUSCULAR HEMOGLOBIN 32.1 pg (27.0-33.4); MEAN CORPUSCULAR HGB CONC 33.2 g/dL (32.0-36.0); MEAN CORPUSCULAR VOLUME 97 fl (80-97); PLATELET COUNT 182 10^3/uL (150-450); RED BLOOD COUNT 3.48 10^6/uL (3.72-5.28); RED CELL DISTRIBUTION WIDTH 20.4 % (11.5-14.0); WHITE BLOOD COUNT 16.1 10^3/uL (4.0-10.5)
[2019-03-09] MEDS: DEXTROSE 5%-WATER 250 ML with PHENYLEPHRINE HCL 40 MG IV PRN ×2 (22:50)
[2019-03-09 23:10] LABS: ABSOLUTE LYMPHOCYTES# (MANUAL) 5.2 10^3/uL (0.5-4.7); ABSOLUTE MONOCYTES # (MANUAL) 1.6 10^3/uL (0.1-1.4); BAND NEUTROPHILS % (MANUAL) 2 % (3-5); BASOPHILS % (MANUAL) 0 % (0-2); EOSINOPHILS % (MANUAL) 1 % (0-6); LYMPHOCYTES % (MANUAL) 32 % (13-45); MONOCYTES % (MANUAL) 10 % (3-13); SEGMENTED NEUTROPHILS % (MAN) 51 % (42-78); TOTAL CELLS COUNTED 100
[2019-03-09 23:12] LABS: ANISOCYTOSIS 2+
[2019-03-09 23:13] LABS: METAMYELOCYTES % (MANUAL) 4 % (0)
[2019-03-09 23:14] LABS: PLATELET COMMENT ADEQUATE
[2019-03-09] MEDS: HALOPERIDOL LACTATE INJ 5 MG/1 ML VIAL IV PRN (23:28)
[2019-03-10] MEDS ORDERED: MIDAZOLAM 2 MG/2 ML INJ ONE ×2 (00:01→00:14)
[2019-03-10] MEDS ORDERED: LIDOCAINE 1% INJ-PF (10 MG/ML) 30 ML SDV ONE ×2 (00:02→00:04)
[2019-03-10] MEDS ORDERED: NORMAL SALINE INJ/PF 0.9% 10 ML SDV IV PRN (00:30)
--- NOTE | 2019-03-10 00:36 | Operative Report ---
Operative Report DATE OF SURGERY: 03/10/19 PREOPERATIVE DIAGNOSIS: Septic shock; acute renal failure; acute hepatic failure POSTOPERATIVE DIAGNOSIS: Same OPERATION: 1. Focused on the neck. 2. Insertion of left subclavian central venous access catheter. SURGEON: KRISTIAN PETIT ANESTHESIA: Local TISSUE REMOVED OR ALTERED: None COMPLICATIONS: None ESTIMATED BLOOD LOSS: 25 cc INTRAOPERATIVE FINDINGS: See below PROCEDURE: The patient was evaluated in the ICU. She was sonorous. She required Haldol and Versed for sedation. Consent was provided for the procedure by the family. Left neck and subclavian area prepped and draped sterile fashion. Timeout conducted. The skin overlying the left internal jugular vein was anesthetized 1% plain lidocaine. Ultrasound directed insertion of gauge needle and wire performed however wire unable to be threaded into vein successfully. Procedure aborted. Procedure repeated again with cannulation of the left internal jugular vein, with advancement of glide wire. Tract was dilated up and attempt was made to thread the triple-lumen central venous catheter over the wire but this was unsuccessful. The catheter wire were removed from the left internal jugular vein. It was uncertain as to the etiology of the resistance to advance the catheter. Additional Versed was given to the patient. We now approached the left subclavian area. The skin was anesthetized 1% plain lidocaine. A venipuncture was performed, and the conventional 0.030 inch guidewire was threaded into the central venous system without difficulty. The tract was dilated up, and a triple-lumen central venous access catheter was fed into the left subclavian vein. Wire was removed, and there was excellent blood flow through all 3 lm. Catheter was secured to the skin at 2 sites with 2 silk suture Biopatch and sterile dressing applied. Portable upright chest x-ray pending at time of dictation.
[2019-03-10] MEDS ORDERED: MIDAZOLAM 2 MG/2 ML INJ IV ONE (01:00)
[2019-03-10] MEDS: INSULIN REG, HUMAN 100 UNIT/ML 3 ML VIAL (PYX) SUBCUT SCH ×3 (01:05→12:47)
--- NOTE | 2019-03-10 01:10 | RADIOLOGY REPORT (SQ) ---
EXAM DESCRIPTION: XR CHEST 1 VIEW COMPLETED DATE/TME: 03/10/2019 00:19 CLINICAL HISTORY: TLC placement COMPARISON: 03/09/2019 FINDINGS: Single frontal view of the chest. Tubes and lines: Left subclavian central venous catheter with tip in the SVC. NG tube with tip below the diaphragm. Leads overlie the chest. Cardiomediastinal silhouette: Stable Lungs: No pneumothorax or pleural effusion. Low lung volumes. Bones: Stable. Upper abdomen: Stable. IMPRESSION: 1. Left subclavian central venous catheter tip in the SVC. No pneumothorax. 2. Otherwise stable appearance of the chest.
[2019-03-10] MEDS ORDERED: LIDOCAINE 1% INJ (10 MG/ML) 10 ML MDV INJ ONE (01:15)
[2019-03-10] MEDS: RINGERS SOLUTION,LACTATED 1,000 ML IV PRN ×3 (02:06→10:44)
[2019-03-10] MEDS: DEXTROSE 5%-WATER 250 ML with PHENYLEPHRINE HCL 40 MG IV PRN ×6 (02:28→10:19)
[2019-03-10 04:46] LABS: INTERNATIONAL RATION (INR) 3.28; PROTHROMBIN TIME 34.2 SEC (11.4-15.4)
[2019-03-10 04:47] LABS: PARTIAL THROMBOPLASTIN TIME 51.9 SEC (23.5-35.8)
[2019-03-10 04:49] LABS: ALBUMIN 2.5 g/dL (3.5-5.0); ALKALINE PHOSPHATASE 254 U/L (38-126); ANION GAP 18 (5-19); ASPARTATE AMINO TRANSFERASE 515 U/L (14-36); BILIRUBIN,DIRECT 12.4 mg/dL (0.0-0.4); BILIRUBIN,TOTAL 14.4 mg/dL (0.2-1.3); BLOOD UREA NITROGEN 42 mg/dL (7-20); CALCIUM 7.7 mg/dL (8.4-10.2); CARBON DIOXIDE 16 mmol/L (22-30); CHLORIDE 99 mmol/L (98-107); GLUCOSE 85 mg/dL (75-110); POTASSIUM 3.5 mmol/L (3.6-5.0); TOTAL PROTEIN 5.4 g/dL (6.3-8.2)
[2019-03-10] MEDS: PIPERACILLIN SODIUM/TAZOBACTAM 2.25 GM in NORMAL SALINE 50 ML IV SCH (05:02)
[2019-03-10] MEDS: MAGNESIUM SULFATE/D5W 1 GM/100 ML RTUPB IV SCH ×3 (06:04→10:07)
[2019-03-10 07:14] LABS: ARTERIAL BLOOD BASE EXCESS -7.9 mmol/L; ARTERIAL BLOOD H2CO3 0.77 mmol/L (1.05-1.35); ARTERIAL BLOOD HCO3 15.5 mmol/L (20-24); ARTERIAL BLOOD O2 SATURATION 92.8 % (94-98); ARTERIAL BLOOD PCO2 25.6 mmHg (35-45); ARTERIAL BLOOD PO2 63.5 mmHg (80-100); ARTERIAL BLOOD TOTAL CO2 16.3 mmol/L (21-25)
[2019-03-10 07:18] LABS: ARTERIAL BLOOD FIO2 ROOM AIR
[2019-03-10] MEDS: HALOPERIDOL LACTATE INJ 5 MG/1 ML VIAL IV PRN (07:32)
[2019-03-10] MEDS ORDERED: DEXTROSE 5%-WATER 250 ML with NOREPINEPHRINE BITARTRATE 4 MG IV PRN ×2 (07:58)
[2019-03-10] MEDS ORDERED: NOREPINEPHRINE BITARTRATE INJ/PF 4 MG/4 ML SDV IV ONE ×2 (07:59→17:35)
[2019-03-10] MEDS: ALBUMIN HUMAN 12.5 GM/50 ML RTUINJ IV SCH ×4 (08:15→11:17)
[2019-03-10 08:35] LABS: HEMATOCRIT 30.4 % (36.0-47.0); MEAN CORPUSCULAR HEMOGLOBIN 31.9 pg (27.0-33.4); MEAN CORPUSCULAR HGB CONC 32.9 g/dL (32.0-36.0); MEAN CORPUSCULAR VOLUME 97 fl (80-97); RED BLOOD COUNT 3.14 10^6/uL (3.72-5.28); RED CELL DISTRIBUTION WIDTH 20.8 % (11.5-14.0); WHITE BLOOD COUNT 16.4 10^3/uL (4.0-10.5)
[2019-03-10] MEDS ORDERED: PHYTONADIONE 5 MG TABLET PO ONE (08:45)
[2019-03-10] MEDS: POTASSI CL 20 MEQ/50 ML RIDER 20 MEQ/50 ML RTUPB IV SCH ×2 (08:45→10:07)
--- NOTE | 2019-03-10 08:48 | RADIOLOGY REPORT (SQ) ---
EXAM DESCRIPTION: KUB/ABDOMEN (SINGLE VIEW) COMPLETED DATE/TIME: 03/09/2019 6:10 pm REASON FOR STUDY: Check Placement of NG Tube COMPARISON: None. NUMBER OF VIEWS: One view. TECHNIQUE: Supine radiographic image of the abdomen acquired. LIMITATIONS: None. FINDINGS: BOWEL GAS PATTERN: Normal bowel gas pattern. No dilated loops. CALCIFICATIONS: No suspicious calcifications. SOFT TISSUES: No gross mass or suggestion of organomegaly. HARDWARE: Endotracheal tube tip just distal to the GE junction with side port overlying distal esopha charles. Prior cholecystectomy. BONES: No acute fracture. No worrisome bone lesions. OTHER: No other significant finding. IMPRESSION: Endotracheal tube side port overlies distal esophagus. Consider advancing 5 to 10 cm. TECHNICAL DOCUMENTATION: JOB ID: [id number] [employer]- All Rights Reserved Reading location - IP/workstation name: [email or web address]
[2019-03-10] MEDS ORDERED: MAGNESIUM SULFATE 4 GM/100 ML RTUPB IV ONE (09:00)
[2019-03-10 09:09] LABS: ABSOLUTE MONOCYTES # (MANUAL) 2.1 10^3/uL (0.1-1.4); BAND NEUTROPHILS % (MANUAL) 2 % (3-5); BASOPHILS % (MANUAL) 0 % (0-2); EOSINOPHILS % (MANUAL) 4 % (0-6); LYMPHOCYTES % (MANUAL) 5 % (13-45); METAMYELOCYTES % (MANUAL) 1 % (0); MONOCYTES % (MANUAL) 13 % (3-13); NUCLEATED RED BLOOD CELLS 4 /100 WBC (0); SEGMENTED NEUTROPHILS % (MAN) 73 % (42-78); TOTAL CELLS COUNTED 100
[2019-03-10 09:11] LABS: HYPERSEGMENTED NEUTROPHILS PRESENT; TOXIC GRANULATION 1+
[2019-03-10 09:12] LABS: ANISOCYTOSIS 2+; BURR CELLS SLIGHT; HOWELL-JOLLY BODIES PRESENT; HYPOCHROMASIA 1+; PAPPENHEIMER BODIES PRESENT; PLATELET COMMENT ADEQUATE; PLATELET COUNT 162 10^3/uL (150-450); POIKILOCYTOSIS SLIGHT; POLYCHROMASIA 1+; SCHISTOCYTES SLIGHT; TARGET CELLS 1+
[2019-03-10 09:13] LABS: MYELOCYTES % (MANUAL) 1 % (0)
--- NOTE | 2019-03-10 09:20 | PDOC PROGRESS REPORT ---
Subjective Progress Note for:: 03/06/19 Subjective:: 03/06/[id number]-old female found at home unresponsive with liquor bottles around she was around brought to the emergency room by EMS found to be in sepsis with multiorgan failure. Elevated lactic acid levels at the time of admission chest x-ray CT abdominal pelvis did not suggestive of any acute pathology. Lab work indicates she is has acute liver failure, sepsis, acute renal failure, acute respiratory failure. NG tube shows slight bloodstained drainage. We are going to keep her n.p.o. INR is 3.24 to give vitamin K 10 mg IV. R IM. Consultation with nephrology consultation with Dr. Person was requested. Patient is receiving IV fluids Ringer lactate at 250 cc/h and Vj- Synephrine be maxed out on it. Blood pressure still low 78/50. Levophed was initiated this morning. Patient is also going to receive Protonix drip. Overall prognosis poor condition is critical. Reason For Visit: ACUTE KIDNEY INJURY, HEPATIC FAILURE WITH ACUTE Physical Exam Vital Signs: Temp Pulse Resp BP Pulse Ox 99.0 F 99 20 78/48 L 98 03/10/19 06:30 03/10/19 06:00 03/10/19 06:30 03/10/19 06:30 03/10/19 06:30 Intake & Output 03/09/19 03/10/19 03/11/19 06:59 06:59 06:59 Intake Total 7554 66 Output Total 560 Balance 6994 66 Weight 86.1 kg General appearance: PRESENT: mild distress, obese, other - Patient is drowsy responding to painful stimuli by opening the eyes. Head exam: PRESENT: atraumatic Eye exam: PRESENT: PERRLA, scleral icterus Mouth exam: PRESENT: moist, tongue midline Neck exam: ABSENT: carotid bruit, JVD, lymphadenopathy, thyromegaly Respiratory exam: PRESENT: decreased breath sounds, tachypnea Cardiovascular exam: PRESENT: tachycardia GI/Abdominal exam: PRESENT: normal bowel sounds, soft. ABSENT: distended, guarding, mass, organolmegaly, rebound, tenderness Rectal exam: PRESENT: deferred Extremities exam: PRESENT: full ROM. ABSENT: calf tenderness, clubbing, pedal edema Neurological exam: PRESENT: altered Psychiatric exam: PRESENT: appropriate affect, normal mood. ABSENT: homicidal ideation, suicidal ideation Skin exam: PRESENT: jaundice Results Laboratory Results: 03/10/19 03:56 03/09/19 03/09/19 03/09/19 13:15 13:15 13:15 WBC 9.8 RBC 3.61 L Hgb 11.5 L Hct 35.2 L MCV 97 MCH 32.0 MCHC 32.8 RDW 20.6 H Plt Count 162 Seg Neutrophils % Not Reportable Lymphocytes % Not Reportable Monocytes % Not Reportable Eosinophils % Not Reportable Basophils % Not Reportable Absolute Neutrophils Not Reportable Absolute Lymphocytes Not Reportable Absolute Monocytes Not Reportable Absolute Eosinophils Not Reportable Absolute Basophils Not Reportable Carbonic Acid HCO3/H2CO3 Ratio ABG pH ABG pCO2 ABG pO2 ABG HCO3 ABG O2 Saturation ABG Base Excess VBG pH VBG pCO2 VBG HCO3 VBG Base Excess FiO2 Sodium 131.0 L Potassium 5.1 H Chloride 85 L Carbon Dioxide 21 L Anion Gap 25 H BUN 47 H Creatinine 6.79 H Est GFR ( Amer) 8 L Est GFR (Non-Af Amer) 6 L Glucose 44 L Lactic Acid 9.3 H Calcium 8.8 Phosphorus Magnesium Total Bilirubin 15.9 H AST 452 H Alkaline Phosphatase 313 H Ammonia Total Protein 6.6 Albumin 3.3 L Lipase 564.3 H Urine Color Urine Appearance Urine pH Ur Specific [place] Urine Protein Urine Glucose (UA) Urine Ketones Urine Blood Urine Nitrite Ur Leukocyte Esterase Urine WBC (Auto) Urine RBC (Auto) Blood Type Antibody Screen 03/09/19 03/09/19 03/09/19 13:15 13:15 13:15 WBC RBC Hgb Hct MCV MCH MCHC RDW Plt Count Seg Neutrophils % Lymphocytes % Monocytes % Eosinophils % Basophils % Absolute Neutrophils Absolute Lymphocytes Absolute Monocytes Absolute Eosinophils Absolute Basophils Carbonic Acid HCO3/H2CO3 Ratio ABG pH ABG pCO2 ABG pO2 ABG HCO3 ABG O2 Saturation ABG Base Excess VBG pH 7.47 H VBG pCO2 29.9 L VBG HCO3 21.2 VBG Base Excess -1.6 FiO2 Sodium Potassium Chloride Carbon Dioxide Anion Gap BUN Creatinine Est GFR ( Amer) Est GFR (Non-Af Amer) Glucose Lactic Acid Calcium Phosphorus Magnesium Total Bilirubin AST Alkaline Phosphatase Ammonia 99.7 H Total Protein Albumin Lipase Urine Color Urine Appearance Urine pH Ur Specific [place] Urine Protein Urine Glucose (UA) Urine Ketones Urine Blood Urine Nitrite Ur Leukocyte Esterase Urine WBC (Auto) Urine RBC (Auto) Blood Type B POSITIVE Antibody Screen NEGATIVE 03/09/19 03/09/19 03/09/19 14:24 17:49 17:49 WBC RBC Hgb Hct MCV MCH MCHC RDW Plt Count Seg Neutrophils % Lymphocytes % Monocytes % Eosinophils % Basophils % Absolute Neutrophils Absolute Lymphocytes Absolute Monocytes Absolute Eosinophils Absolute Basophils Carbonic Acid HCO3/H2CO3 Ratio ABG pH ABG pCO2 ABG pO2 ABG HCO3 ABG O2 Saturation ABG Base Excess VBG pH VBG pCO2 VBG HCO3 VBG Base Excess FiO2 Sodium 132.8 L Potassium 4.0 D Chloride 97 L Carbon Dioxide 19 L Anion Gap 17 BUN 43 H Creatinine 5.45 H Est GFR ( Amer) 10 L Est GFR (Non-Af Amer) 8 L Glucose 105 Lactic Acid 5.7 H Calcium 7.3 L Phosphorus Magnesium Total Bilirubin 13.6 H AST 487 H Alkaline Phosphatase 255 H Ammonia Total Protein 5.3 L Albumin 2.6 L Lipase Urine Color MARGARET Urine Appearance CLOUDY Urine pH 5.0 Ur Specific [place] 1.018 Urine Protein 30 H Urine Glucose (UA) 50 H Urine Ketones TRACE H Urine Blood SMALL H Urine Nitrite NEGATIVE Ur Leukocyte Esterase NEGATIVE Urine WBC (Auto) 68 Urine RBC (Auto) 9 Blood Type Antibody Screen 03/09/19 03/09/19 03/09/19 17:49 22:25 22:25 WBC 8.7 16.1 H RBC 3.04 L 3.48 L Hgb 10.0 L 11.2 L Hct 29.5 L 33.6 L MCV 97 97 MCH 32.8 32.1 MCHC 33.9 33.2 RDW 20.2 H 20.4 H Plt Count 127 L 182 Seg Neutrophils % Not Reportable Not Reportable Lymphocytes % Not Reportable Not Reportable Monocytes % Not Reportable Not Reportable Eosinophils % Not Reportable Not Reportable Basophils % Not Reportable Not Reportable Absolute Neutrophils Not Reportable Not Reportable Absolute Lymphocytes Not Reportable Not Reportable Absolute Monocytes Not Reportable Not Reportable Absolute Eosinophils Not Reportable Not Reportable Absolute Basophils Not Reportable Not Reportable Carbonic Acid HCO3/H2CO3 Ratio ABG pH ABG pCO2 ABG pO2 ABG HCO3 ABG O2 Saturation ABG Base Excess VBG pH VBG pCO2 VBG HCO3 VBG Base Excess FiO2 Sodium Potassium Chloride Carbon Dioxide Anion Gap BUN Creatinine Est GFR ( Amer) Est GFR (Non-Af Amer) Glucose Lactic Acid 5.2 H Calcium Phosphorus Magnesium Total Bilirubin AST Alkaline Phosphatase Ammonia Total Protein Albumin Lipase Urine Color Urine Appearance Urine pH Ur Specific [place] Urine Protein Urine Glucose (UA) Urine Ketones Urine Blood Urine Nitrite Ur Leukocyte Esterase Urine WBC (Auto) Urine RBC (Auto) Blood Type Antibody Screen 03/10/19 03/10/19 03/10/19 03:56 03:56 03:56 WBC RBC Hgb Hct MCV MCH MCHC RDW Plt Count Seg Neutrophils % Lymphocytes % Monocytes % Eosinophils % Basophils % Absolute Neutrophils Absolute Lymphocytes Absolute Monocytes Absolute Eosinophils Absolute Basophils Carbonic Acid HCO3/H2CO3 Ratio ABG pH ABG pCO2 ABG pO2 ABG HCO3 ABG O2 Saturation ABG Base Excess VBG pH VBG pCO2 VBG HCO3 VBG Base Excess FiO2 Sodium 132.7 L Potassium 3.5 L Chloride 99 Carbon Dioxide 16 L Anion Gap 18 BUN 42 H Creatinine 5.13 H Est GFR ( Amer) 10 L Est GFR (Non-Af Amer) 9 L Glucose 85 Lactic Acid 7.5 H Calcium 7.7 L Phosphorus 2.0 L Magnesium 1.1 L* Total Bilirubin 14.4 H AST 515 H Alkaline Phosphatase 254 H Ammonia 57.6 H Total Protein 5.4 L Albumin 2.5 L Lipase 952.3 H Urine Color Urine Appearance Urine pH Ur Specific [place] Urine Protein Urine Glucose (UA) Urine Ketones Urine Blood Urine Nitrite Ur Leukocyte Esterase Urine WBC (Auto) Urine RBC (Auto) Blood Type Antibody Screen 03/10/19 03/10/19 07:03 08:20 WBC RBC Hgb Hct MCV MCH MCHC RDW Plt Count Seg Neutrophils % Not Reportable Lymphocytes % Not Reportable Monocytes % Not Reportable Eosinophils % Not Reportable Basophils % Not Reportable Absolute Neutrophils Not Reportable Absolute Lymphocytes Not Reportable Absolute Monocytes Not Reportable Absolute Eosinophils Not Reportable Absolute Basophils Not Reportable Carbonic Acid 0.77 L HCO3/H2CO3 Ratio 20:1 ABG pH 7.40 ABG pCO2 25.6 L ABG pO2 63.5 L ABG HCO3 15.5 L ABG O2 Saturation 92.8 L ABG Base Excess -7.9 VBG pH VBG pCO2 VBG HCO3 VBG Base Excess FiO2 ROOM AIR Sodium Potassium Chloride Carbon Dioxide Anion Gap BUN Creatinine Est GFR ( Amer) Est GFR (Non-Af Amer) Glucose Lactic Acid Calcium Phosphorus Magnesium Total Bilirubin AST Alkaline Phosphatase Ammonia Total Protein Albumin Lipase Urine Color Urine Appearance Urine pH Ur Specific [place] Urine Protein Urine Glucose (UA) Urine Ketones Urine Blood Urine Nitrite Ur Leukocyte Esterase Urine WBC (Auto) Urine RBC (Auto) Blood Type Antibody Screen 03/09/19 03/09/19 13:15 13:15 Creatine Kinase 147 H Troponin I 0.016 Impressions: Abdomen/Pelvis CT 03/09/19 13:31 IMPRESSION: There appears to be marked hepatic steatosis. The liver is somewhat heterogeneous. If there is a history of neoplasm, diffuse hepatic metastatic disease cannot be excluded. Head CT 03/09/19 13:31 IMPRESSION: NORMAL BRAIN CT WITHOUT CONTRAST. EVIDENCE OF ACUTE STROKE: NO. KUB X-Ray 03/09/19 16:44 IMPRESSION: Endotracheal tube side port overlies distal esophagus. Consider advancing 5 to 10 cm. Chest X-Ray 03/10/19 00:19 IMPRESSION: 1. Left subclavian central venous catheter tip in the SVC. No pneumothorax. 2. Otherwise stable appearance of the chest. Assessment and Plan - Diagnosis (1) Sepsis Qualifiers: Sepsis type: sepsis due to unspecified organism Sepsis acute organ dysfunction status: with acute organ dysfunction Severe sepsis acute organ dysfunction type: acute liver failure Severe sepsis shock status: with septic shock Is this a current diagnosis for this admission?: Yes Plan: 03/09/2019-the patient presented by ambulance when she was found down by her roommate. They were many empty liquor and wine bottles. There was dried emesis. The patient may have aspirated. The sepsis is likely due to severe dehydration with hypoxemia, hypotension requiring vasopressors, acute kidney injury and acute hepatic failure. She also had an elevated lactic acid. She was started on Zosyn. Cultures are pending. CT scan of the abdomen and pelvis as well as chest x-ray did not identify any suspicious etiologies for infection. She does have cirrhosis. She received 4 L of fluid prior to the admission and I will continue her on lactated Ringer's 250 mL/h. We will repeat chemistries every 6-8 hours as there will be shifting with the aggressive volume resuscitation. Her initial lactic acid was 9.3. She has serial lactic acid levels ordered as well. We will recheck her laboratory studies each morning in addition to the serial studies ordered. 03/10/2019-patient admitted with sepsis and multiorgan failure. Lactic acid level went back up to 7.5 today. Patient is hypotensive requiring 2 pressors. Patient has acute liver failure and acute renal failure. Patient is also hypoxic. Plan is to continue the antibiotics pulmonary consult nephrology consult was requested. To give vitamin K today. Has an NG tube slightly bloodstained drainage coming from the NG tube. Plan is to closely monitor the hemoglobin. Overall prognosis poor condition is critical. (2) Acute kidney injury Is this a current diagnosis for this admission?: Yes Plan: 03/09/2019-it is unknown how long the patient was down prior to her roommate finding her. He called EMS immediately. It is unknown how long she went without adequate oral fluid intake. Her serum creatinine on admission was 6.79. Her BUN was not significantly elevated. This could be an acute renal issue from poor perfusion. I will place consult for nephrology in the morning. We will see how she responds to fluid resuscitation. We will monitor intake and output as well. 03/10/2019-patient admitted with acute kidney injury creatinine today is 5.13 i mproved from admission creatinine. Patient is receiving Ringer lactate at 250 cc/h. Renal ultrasound is requested ,nephrology consult is requested. Urinary output is 560 mL since the admission. (3) Altered mental status Qualifiers: Altered mental status type: disorientation Qualified Code(s): R41.0 - Disorientation, unspecified Is this a current diagnosis for this admission?: No Plan: 03/10/2019-patient has altered mental status most likely secondary to sepsis and multiorgan failure. CT head at the time of admission negative for acute pathology. (4) Hepatic encephalopathy Is this a current diagnosis for this admission?: Yes Plan: The patient suffered acute liver dysfunction. Bilirubin was 16 with an ammonia level of 99. The patient will receive lactulose. We will monitor her ammonia levels. Aggressive fluid resuscitation will also dilute out the concentrated bilirubin and ammonia. 03/10/2019-03/10/2019-patient admitted with hepatic encephalopathy secondary to liver failure. She is a chronic alcohol abuser. To give lactulose enema. Patient is n.p.o. ammonia level came down to 57 today. (5) Hyperammonemia Is this a current diagnosis for this admission?: Yes Plan: 03/09/2019-elevated ammonia level as above. Lactulose 4 times a day. Monitor ammonia level. 03/10/2019-serum ammonia level at the time of admission is 99 and it was improved to 57 today. To change lactulose to perrectal. (6) Hyponatremia Is this a current diagnosis for this admission?: Yes Plan: 03/09/2019-the patient has minimal hyponatremia. This will be reassessed as her electrolytes will likely be thrown off with the very aggressive fluid resuscitation. We will continue to monitor. 03/10/2019-patient serum sodium is 132.5. Most likely secondary to liver failure. sHe is getting Ringer lactate to 150 cc/h. (7) Hypomagnesemia Is this a current diagnosis for this admission?: Yes Plan: 03/10/2019-serum magnesium is 1.1 today patient is receiving IV magnesium supplementations. (8) Pancreatitis Qualifiers: Chronicity: acute Pancreatitis type: biliary Acute pancreatitis complication: no infection or necrosis Qualified Code(s): K85.10 - Biliary acute pancreatitis without necrosis or infection Is this a current diagnosis for this admission?: Yes Plan: This pancreatitis is likely due to alcohol. She did have gallstone pancreatitis with a cholecystectomy several months ago. Conservative therapy. We will give her medications by mouth but no feeding as yet. Continue to monitor chemistries. 03/10/2019-patient came in with elevated lipase levels most likely secondary to alcohol abuse. Patient has history of gallbladder removal. Plan is to keep her n.p.o. continue with IV fluids. (9) ETOH abuse Is this a current diagnosis for this admission?: Yes Plan: 03/09/2019-many empty bottles were found at in the patient's home when she was fo und down. I have ordered benzodiazepines for expected withdrawal. 03/10/2019-patient is an 81 IV as needed to prevent alcohol withdrawal symptoms. (10) Acute respiratory failure with hypoxia Is this a current diagnosis for this admission?: Yes Plan: 03/09/2019-the patient exhibited increased work of breathing and hypoxemia. She was placed on BiPAP with oxygen supplementation. Hopefully will be able to wean her from the BiPAP and oxygen. She does not have a primary pulmonary diagnosis but nebulizer treatments will be available if needed. 03/10/2019-patient admitted with hypoxia acute respiratory failure with hypoxia presently on oxygen nasal cannula. ABG done on room air indicates PCO2 of 61%. Consultation with Dr. Person was requested. (11) Upper GI bleed Is this a current diagnosis for this admission?: Yes Plan: 03/10/2019-patient has upper GI bleed slight blood is coming from the NG tube. INR is elevated patient is going to receive vitamin K. GI consult with Miriam is going to be requested. Hemoglobin is 10 today. - Time Time Spent with patient: 35 or more minutes Medications reviewed and adjusted accordingly: Yes Anticipated discharge: SNF
[2019-03-10] MEDS ORDERED: PHYTONADIONE INJ 10 MG/1 ML AMPULE SUBCUT ONE (09:27)
[2019-03-10] MEDS ORDERED: NORMAL SALINE 100 ML with PANTOPRAZOLE SODIUM 80 MG IV PRN ×2 (09:30)
[2019-03-10] MEDS ORDERED: DEXTROSE 5%-WATER 250 ML with VASOPRESSIN 100 UNIT IV PRN ×2 (09:31)
[2019-03-10] MEDS ORDERED: VASOPRESSIN INJ 20 UNIT/1 ML VIAL ONE (09:33)
--- NOTE | 2019-03-10 09:40 | EKG REPORT ---
SEVERITY:- NORMAL ECG - SINUS RHYTHM : Confirmed by: Sherry Jarquin 10-Mar-2019 09:39:17
--- NOTE | 2019-03-10 09:40 | EKG REPORT ---
SEVERITY:- BORDERLINE ECG - SINUS TACHYCARDIA BORDERLINE PROLONGED QT INTERVAL : Confirmed by: Sherry Jarquin 10-Mar-2019 09:39:11
--- NOTE | 2019-03-10 09:51 | Progress Note ---
Provider Note Provider Note: brief note was called by Dr Person on behalf of Dr Rg patient in ICU, ? probable cirrhosis and recent ETOH use alcohol use recently abnormal LFT likely has ETOH hepatitis has blood per NG however INR is significantly elevated not able to safely undergo EGD for now will need correction with FFP for more rapid correction rather than Vit K start Protonix drip also start sandostatin for now as soon as INR < 1,5, can consider EGD overall poor prognosis will speak to Dr Rg full note to follow
[2019-03-10] MEDS ORDERED: VANCOMYCIN HCL INJ 1000 MG VIAL IV SCH (10:00)
[2019-03-10] MEDS ORDERED: THIAMINE HCL 100 MG, FOLIC ACID 1 MG in NORMAL SALINE 250 ML IV SCH (10:00)
[2019-03-10] MEDS ORDERED: LACTULOSE SYRUP 20 GM/30 ML UDCUP PR SCH (10:00)
[2019-03-10] MEDS ORDERED: VANCOMYCIN HCL 1,250 MG in DEXTROSE 5%-WATER 250 ML IV ONE (10:00)
[2019-03-10] MEDS ORDERED: SODIUM PHOS,M-BASIC-D-BASIC 30 MMOL in NORMAL SALINE 250 ML IV ONE (10:15)
[2019-03-10] MEDS: LACTULOSE SYRUP 20 GM/30 ML UDCUP NG SCH (10:27)
[2019-03-10] MEDS ORDERED: NORMAL SALINE 500 ML with OCTREOTIDE ACETATE 500 MCG IV PRN ×2 (10:45)
[2019-03-10 11:39] LABS: CREATINE KINASE MB 5.51 ng/mL (<4.55); TROPONIN I 0.031 ng/mL
[2019-03-10 12:34] LABS: PATH REVIEW PATHOLOGIST REVIEWED
--- NOTE | 2019-03-10 12:51 | Progress Note ---
Provider Note Provider Note: Patient condition is critical prognosis is poor. In my opinion she is in septic shock with multiorgan failure. I discussed the care plan with patient's Cristian's request is to make her DNR/DNI and agreed for comfort care measures. I requested the nurse contracting manager to call him back to confirm the discussion I have with the patient's . I am going to downgrade the patient to medical floor and hospice consult will be requested. After reviewing the labs this morning pulmonary consult, GI consult, nephrology consult was requested. Again her overall prognosis is poor condition is critical.
[2019-03-10] MEDS ORDERED: SCOPOLAMINE HYDROBROMIDE 1.5 MG PATCH.TD72 TD SCH (13:21)
[2019-03-10] MEDS ORDERED: MORPHINE SULFATE 10 MG/ML INJ ONE (13:38)
--- NOTE | 2019-03-10 13:50 | PDOC CONSULTATION ---
Consultation Consult Date: 03/10/19 Provider Consulted: KIANNA XIE Consult reason:: GI bleed History of Present Illness Admission Date/PCP: 03/09/19 16:36 History of Present Illness: EN [place] is a 58 year old female I am asked to see this patient by Dr Person on behalf of the Hospitalist service patient admitted for sepsis with what appears to be multi-organ failure she did have alcohol use has elevated LFT's likely a combination of probable ischemia and alcoholic hepatitis her INR is elevated patient was being given Vit K patient noted to have blood per NGT has elevated INR not able to be safely scoped I spoke to the hospitalist wanted to start both IV PPI and sandostatin after further discussion, patient has been DNR/ DNI at this point considering hospice care, does not need invasive procedures at this point overall prognosis is poor as per hospitalist note reflecting this Past Medical History Cardiac Medical History: Reports: None Pulmonary Medical History: Reports: None EENT Medical History: Reports: None Neurological Medical History: Reports: None Endocrine Medical History: Reports: None Renal/ Medical History: Reports: None Malignancy Medical History: Reports: None GI Medical History: Reports: Cirrhosis Musculoskeltal Medical History: Reports: None Skin Medical History: Reports: None Psychiatric Medical History: Reports: Alcohol Dependency Traumatic Medical History: Denies: Gunshot Wound, Pneumothorax Hematology: Reports: Anemia Infectious Medical History: Reports: Methicillin-Resistant Staph Aureus Past Surgical History Past Surgical History: Reports: Appendectomy, Cholecystectomy, Hysterectomy Social History Lives with: Friend Smoking Status: Unknown if Ever Smoked Frequency of Alcohol Use: Heavy Hx Recreational Drug Use: No Drugs: None Hx Prescription Drug Abuse: No - Advance Directive Resuscitation Status: Full Code Family History Family History: Reviewed & Not Pertinent Parental Family History Reviewed: Yes Children Family History Reviewed: Unknown Sibling(s) Family History Reviewed.: Unknown Medication/Allergy Home Medications: No Home Medications 03/09/19 Allergies/Adverse Reactions: hypochlorous acid [From Alevicyn Dermal] Allergy (Verified 03/09/19 14:35) meperidine [From Demerol] Allergy (Verified 03/09/19 14:35) sodium chloride [From Alevicyn Dermal] Allergy (Verified 03/09/19 14:35) sodium phosphate [From Alevicyn Dermal] Allergy (Verified 03/09/19 14:35) sodium sulfate [From Alevicyn Dermal] Allergy (Verified 03/09/19 14:35) Review of Systems Constitutional: PRESENT: weakness Ears: ABSENT: hearing changes Nose, Mouth, and Throat: ABSENT: mouth pain, sore throat Cardiovascular: ABSENT: chest pain Respiratory: ABSENT: dyspnea, hemoptysis Gastrointestinal: PRESENT: hematochezia, melena Genitourinary: ABSENT: dysuria, hematuria Musculoskeletal: ABSENT: joint swelling Neurological: PRESENT: weakness. ABSENT: syncope, tremor(s), vertigo Endocrine: ABSENT: polydipsia, polyphagia, polyuria Hematologic/Lymphatic: PRESENT: easy bruising Physical Exam Vital Signs: Temp Pulse Resp BP Pulse Ox 98.6 F 100 27 H 131/74 H 96 03/10/19 12:56 03/10/19 12:00 03/10/19 12:56 03/10/19 12:56 03/10/19 12:56 Intake & Output 03/09/19 03/10/19 03/11/19 06:59 06:59 06:59 Intake Total 7554 2183 Output Total 560 285 Balance 6994 1898 Weight 86.1 kg Head exam: PRESENT: atraumatic, normocephalic Eye exam: PRESENT: EOMI, PERRLA, scleral icterus. ABSENT: nystagmus Mouth exam: PRESENT: moist, neck supple Throat exam: ABSENT: tonsillar exudate, tonsillogmegaly Neck exam: ABSENT: meningismus, tenderness, thyromegaly Respiratory exam: PRESENT: symmetrical, tachypnea. ABSENT: wheezes Cardiovascular exam: PRESENT: +S1, +S2 GI/Abdominal exam: PRESENT: tenderness. ABSENT: rebound Extremities exam: PRESENT: +2 edema Neurological exam: PRESENT: altered Focused psych exam: PRESENT: restlessness Skin exam: PRESENT: normal color. ABSENT: mottled, pallor, urticaria, vesicles Results Laboratory Results: 03/10/19 08:20 03/10/19 03:56 03/09/19 03/09/19 03/09/19 13:15 13:15 13:15 WBC 9.8 RBC 3.61 L Hgb 11.5 L Hct 35.2 L MCV 97 MCH 32.0 MCHC 32.8 RDW 20.6 H Plt Count 162 Seg Neutrophils % Not Reportable Lymphocytes % Not Reportable Monocytes % Not Reportable Eosinophils % Not Reportable Basophils % Not Reportable Absolute Neutrophils Not Reportable Absolute Lymphocytes Not Reportable Absolute Monocytes Not Reportable Absolute Eosinophils Not Reportable Absolute Basophils Not Reportable Carbonic Acid HCO3/H2CO3 Ratio ABG pH ABG pCO2 ABG pO2 ABG HCO3 ABG O2 Saturation ABG Base Excess FiO2 Sodium 131.0 L Potassium 5.1 H Chloride 85 L Carbon Dioxide 21 L Anion Gap 25 H BUN 47 H Creatinine 6.79 H Est GFR ( Amer) 8 L Est GFR (Non-Af Amer) 6 L Glucose 44 L Lactic Acid 9.3 H Calcium 8.8 Phosphorus Magnesium Total Bilirubin 15.9 H AST 452 H Alkaline Phosphatase 313 H Ammonia Total Protein 6.6 Albumin 3.3 L Lipase 564.3 H Urine Color Urine Appearance Urine pH Ur Specific [place] Urine Protein Urine Glucose (UA) Urine Ketones Urine Blood Urine Nitrite Ur Leukocyte Esterase Urine WBC (Auto) Urine RBC (Auto) Blood Type Antibody Screen 03/09/19 03/09/19 03/09/19 13:15 13:15 14:24 WBC RBC Hgb Hct MCV MCH MCHC RDW Plt Count Seg Neutrophils % Lymphocytes % Monocytes % Eosinophils % Basophils % Absolute Neutrophils Absolute Lymphocytes Absolute Monocytes Absolute Eosinophils Absolute Basophils Carbonic Acid HCO3/H2CO3 Ratio ABG pH ABG pCO2 ABG pO2 ABG HCO3 ABG O2 Saturation ABG Base Excess FiO2 Sodium Potassium Chloride Carbon Dioxide Anion Gap BUN Creatinine Est GFR ( Amer) Est GFR (Non-Af Amer) Glucose Lactic Acid Calcium Phosphorus Magnesium Total Bilirubin AST Alkaline Phosphatase Ammonia 99.7 H Total Protein Albumin Lipase Urine Color MARGARET Urine Appearance CLOUDY Urine pH 5.0 Ur Specific [place] 1.018 Urine Protein 30 H Urine Glucose (UA) 50 H Urine Ketones TRACE H Urine Blood SMALL H Urine Nitrite NEGATIVE Ur Leukocyte Esterase NEGATIVE Urine WBC (Auto) 68 Urine RBC (Auto) 9 Blood Type B POSITIVE Antibody Screen NEGATIVE 03/09/19 03/09/19 03/09/19 17:49 17:49 17:49 WBC 8.7 RBC 3.04 L Hgb 10.0 L Hct 29.5 L MCV 97 MCH 32.8 MCHC 33.9 RDW 20.2 H Plt Count 127 L Seg Neutrophils % Not Reportable Lymphocytes % Not Reportable Monocytes % Not Reportable Eosinophils % Not Reportable Basophils % Not Reportable Absolute Neutrophils Not Reportable Absolute Lymphocytes Not Reportable Absolute Monocytes Not Reportable Absolute Eosinophils Not Reportable Absolute Basophils Not Reportable Carbonic Acid HCO3/H2CO3 Ratio ABG pH ABG pCO2 ABG pO2 ABG HCO3 ABG O2 Saturation ABG Base Excess FiO2 Sodium 132.8 L Potassium 4.0 D Chloride 97 L Carbon Dioxide 19 L Anion Gap 17 BUN 43 H Creatinine 5.45 H Est GFR ( Amer) 10 L Est GFR (Non-Af Amer) 8 L Glucose 105 Lactic Acid 5.7 H Calcium 7.3 L Phosphorus Magnesium Total Bilirubin 13.6 H AST 487 H Alkaline Phosphatase 255 H Ammonia Total Protein 5.3 L Albumin 2.6 L Lipase Urine Color Urine Appearance Urine pH Ur Specific [place] Urine Protein Urine Glucose (UA) Urine Ketones Urine Blood Urine Nitrite Ur Leukocyte Esterase Urine WBC (Auto) Urine RBC (Auto) Blood Type Antibody Screen 03/09/19 03/09/19 03/10/19 22:25 22:25 03:56 WBC 16.1 H RBC 3.48 L Hgb 11.2 L Hct 33.6 L MCV 97 MCH 32.1 MCHC 33.2 RDW 20.4 H Plt Count 182 Seg Neutrophils % Not Reportable Lymphocytes % Not Reportable Monocytes % Not Reportable Eosinophils % Not Reportable Basophils % Not Reportable Absolute Neutrophils Not Reportable Absolute Lymphocytes Not Reportable Absolute Monocytes Not Reportable Absolute Eosinophils Not Reportable Absolute Basophils Not Reportable Carbonic Acid HCO3/H2CO3 Ratio ABG pH ABG pCO2 ABG pO2 ABG HCO3 ABG O2 Saturation ABG Base Excess FiO2 Sodium 132.7 L Potassium 3.5 L Chloride 99 Carbon Dioxide 16 L Anion Gap 18 BUN 42 H Creatinine 5.13 H Est GFR ( Amer) 10 L Est GFR (Non-Af Amer) 9 L Glucose 85 Lactic Acid 5.2 H Calcium 7.7 L Phosphorus 2.0 L Magnesium 1.1 L* Total Bilirubin 14.4 H AST 515 H Alkaline Phosphatase 254 H Ammonia Total Protein 5.4 L Albumin 2.5 L Lipase 952.3 H Urine Color Urine Appearance Urine pH Ur Specific [place] Urine Protein Urine Glucose (UA) Urine Ketones Urine Blood Urine Nitrite Ur Leukocyte Esterase Urine WBC (Auto) Urine RBC (Auto) Blood Type Antibody Screen 03/10/19 03/10/19 03/10/19 03:56 03:56 07:03 WBC RBC Hgb Hct MCV MCH MCHC RDW Plt Count Seg Neutrophils % Lymphocytes % Monocytes % Eosinophils % Basophils % Absolute Neutrophils Absolute Lymphocytes Absolute Monocytes Absolute Eosinophils Absolute Basophils Carbonic Acid 0.77 L HCO3/H2CO3 Ratio 20:1 ABG pH 7.40 ABG pCO2 25.6 L ABG pO2 63.5 L ABG HCO3 15.5 L ABG O2 Saturation 92.8 L ABG Base Excess -7.9 FiO2 ROOM AIR Sodium Potassium Chloride Carbon Dioxide Anion Gap BUN Creatinine Est GFR ( Amer) Est GFR (Non-Af Amer) Glucose Lactic Acid 7.5 H Calcium Phosphorus Magnesium Total Bilirubin AST Alkaline Phosphatase Ammonia 57.6 H Total Protein Albumin Lipase Urine Color Urine Appearance Urine pH Ur Specific [place] Urine Protein Urine Glucose (UA) Urine Ketones Urine Blood Urine Nitrite Ur Leukocyte Esterase Urine WBC (Auto) Urine RBC (Auto) Blood Type Antibody Screen 03/10/19 08:20 WBC 16.4 H RBC 3.14 L Hgb 10.0 L Hct 30.4 L MCV 97 MCH 31.9 MCHC 32.9 RDW 20.8 H Plt Count 162 Seg Neutrophils % Not Reportable Lymphocytes % Not Reportable Monocytes % Not Reportable Eosinophils % Not Reportable Basophils % Not Reportable Absolute Neutrophils Not Reportable Absolute Lymphocytes Not Reportable Absolute Monocytes Not Reportable Absolute Eosinophils Not Reportable Absolute Basophils Not Reportable Carbonic Acid HCO3/H2CO3 Ratio ABG pH ABG pCO2 ABG pO2 ABG HCO3 ABG O2 Saturation ABG Base Excess FiO2 Sodium Potassium Chloride Carbon Dioxide Anion Gap BUN Creatinine Est GFR ( Amer) Est GFR (Non-Af Amer) Glucose Lactic Acid Calcium Phosphorus Magnesium Total Bilirubin AST Alkaline Phosphatase Ammonia Total Protein Albumin Lipase Urine Color Urine Appearance Urine pH Ur Specific [place] Urine Protein Urine Glucose (UA) Urine Ketones Urine Blood Urine Nitrite Ur Leukocyte Esterase Urine WBC (Auto) Urine RBC (Auto) Blood Type Antibody Screen 03/09/19 03/09/19 03/10/19 13:15 13:15 10:24 Creatine Kinase 147 H 287 H CK-MB (CK-2) Troponin I 0.016 03/10/19 10:24 Creatine Kinase CK-MB (CK-2) 5.51 H Troponin I 0.031 Impressions: Abdomen/Pelvis CT 03/09/19 13:31 IMPRESSION: There appears to be marked hepatic steatosis. The liver is some what heterogeneous. If there is a history of neoplasm, diffuse hepatic metastatic disease cannot be excluded. Head CT 03/09/19 13:31 IMPRESSION: NORMAL BRAIN CT WITHOUT CONTRAST. EVIDENCE OF ACUTE STROKE: NO. KUB X-Ray 03/09/19 16:44 IMPRESSION: Endotracheal tube side port overlies distal esophagus. Consider advancing 5 to 10 cm. Chest X-Ray 03/10/19 00:19 IMPRESSION: 1. Left subclavian central venous catheter tip in the SVC. No pneumothorax. 2. Otherwise stable appearance of the chest. Assessment & Plan - Diagnosis (1) Upper GI bleed Is this a current diagnosis for this admission?: Yes Plan: patient has liver disease likely a combination of both ischemic liver disease, chronic liver disease and alcoholic induced hepatitis INR is elevated the plan was to correct and try to get EGD done however situation has evolved to the point where her clinical situation has decompensated she is being transferred out of the ICU for possible comfort care/ hospice type care therefore will not perform any invasive procedures including EGD at this point her overall prognosis is not good and stepping down of care is likely more prudent at this point will sign off for now please call if any other issues she can remain on a PPI drip for now unless all meds are discontinued for comfort care measures - Time Time Spent: 50 to 70 Minutes
[2019-03-10] MEDS ORDERED: PHENYLEPHRINE HCL INJ/PF 10 MG/1 ML SDV ONE (17:38)
[2019-03-10] MEDS ORDERED: NORMAL SALINE 1000 ML 1,000 ML with POTASSIUM CHLORIDE 20 MEQ, MAGNESIUM SULFATE 8 MEQ,... IV SCH ×5 (18:00)
[2019-03-10] MEDS: LORAZEPAM INJ 2 MG/1 ML VIAL IV PRN (20:06)
[2019-03-10] MEDS: MORPHINE SULFATE 10 MG/ML INJ IV PRN (22:23)
[2019-03-11] MEDS: LORAZEPAM INJ 2 MG/1 ML VIAL IV PRN ×2 (00:40→05:54)
[2019-03-11] MEDS: MORPHINE SULFATE 10 MG/ML INJ IV PRN ×2 (03:35→18:18)
--- NOTE | 2019-03-11 08:22 | RADIOLOGY REPORT (SQ) ---
EXAM DESCRIPTION: CHEST SINGLE VIEW COMPLETED DATE/TIME: 03/11/2019 6:33 am REASON FOR STUDY: aspiration COMPARISON: 03/10/2019 EXAM PARAMETERS: NUMBER OF VIEWS: One view. TECHNIQUE: Single frontal radiographic view of the chest acquired. RADIATION DOSE: NA LIMITATIONS: None. FINDINGS: LUNGS AND PLEURA: No opacities, masses or pneumothorax. No pleural effusion. Unchanged el evation of the right hemidiaphragm. MEDIASTINUM AND HILAR STRUCTURES: No masses. Contour normal. HEART AND VASCULAR STRUCTURES: Heart normal in size. Normal vasculature. BONES: No acute findings. HARDWARE: Stable left subclavian approach central venous catheter. Enteric tube side port at GE junc tion. OTHER: No other significant finding. IMPRESSION: No evidence of new airspace disease or other acute cardiopulmonary process. Enteric tube side port at GE junction. Consider advancing 5 to 10 cm. TECHNICAL DOCUMENTATION: JOB ID: [id number] [employer]- All Rights Reserved Reading location - IP/workstation name: [email or web address]
[2019-03-11 10:39] LABS: PATH REVIEW PATHOLOGIST REVIEWED
[2019-03-11 12:49] VITALS: BP 74/39
--- NOTE | 2019-03-11 14:08 | PDOC PROGRESS REPORT ---
Subjective Progress Note for:: 03/11/19 Subjective:: Seen on rounds this morning with at bedside. Discussed with him about her care and their decision to make her comfort/hospice at this time. This was done prior to me assuming care today. She is resting peacefully Reason For Visit: ACUTE KIDNEY INJURY, HEPATIC FAILURE WITH ACUTE Physical Exam Vital Signs: Temp Pulse Resp BP Pulse Ox 98.8 F 94 22 H 74/39 L 94 03/11/19 12:31 03/10/19 21:35 03/11/19 12:31 03/11/19 12:31 03/11/19 12:31 Intake & Output 03/10/19 03/11/19 03/12/19 06:59 06:59 06:59 Intake Total 7554 2443 Output Total 560 860 Balance 6994 1583 Weight 189 lb 13.088 oz General appearance: PRESENT: no acute distress Head exam: PRESENT: atraumatic, normocephalic Ear exam: PRESENT: normal external ear exam Respiratory exam: PRESENT: decreased breath sounds, symmetrical Cardiovascular exam: PRESENT: +S1, +S2 GI/Abdominal exam: PRESENT: hypoactive bowel sounds, soft Neurological exam: PRESENT: other - Unresponsive and obtunded Results Laboratory Results: 03/10/19 08:20 03/10/19 03:56 03/09/19 03/09/19 03/10/19 13:15 13:15 10:24 Creatine Kinase 147 H 287 H CK-MB (CK-2) Troponin I 0.016 03/10/19 10:24 Creatine Kinase CK-MB (CK-2) 5.51 H Troponin I 0.031 Impressions: Abdomen/Pelvis CT 03/09/19 13:31 IMPRESSION: There appears to be marked hepatic steatosis. The liver is somewhat heterogeneous. If there is a history of neoplasm, diffuse hepatic metastatic disease cannot be excluded. Head CT 03/09/19 13:31 IMPRESSION: NORMAL BRAIN CT WITHOUT CONTRAST. EVIDENCE OF ACUTE STROKE: NO. KUB X-Ray 03/09/19 16:44 IMPRESSION: Endotracheal tube side port overlies distal esophagus. Consider advancing 5 to 10 cm. Chest X-Ray 03/11/19 06:00 IMPRESSION: No evidence of new airspace disease or other acute cardiopulmonary process. Enteric tube side port at GE junction. Consider advancing 5 to 10 cm. Assessment and Plan - Diagnosis (1) Acute renal failure Qualifiers: Acute renal failure type: unspecified Qualified Code(s): N17.9 - Acute kidney failure, unspecified Is this a current diagnosis for this admission?: Yes (2) Acute respiratory failure with hypoxia Is this a current diagnosis for this admission?: Yes (3) Altered mental status Qualifiers: Altered mental status type: disorientation Qualified Code(s): R41.0 - Disorientation, unspecified Is this a current diagnosis for this admission?: Yes (4) Cirrhosis Qualifiers: Hepatic cirrhosis type: alcoholic cirrhosis Ascites presence: unspecified Qualified Code(s): K70.30 - Alcoholic cirrhosis of liver without ascites Is this a current diagnosis for this admission?: Yes (5) Dehydration Is this a current diagnosis for this admission?: Yes (6) Hepatic encephalopathy Is this a current diagnosis for this admission?: Yes (7) Hyperammonemia Is this a current diagnosis for this admission?: Yes (8) Hyponatremia Is this a current diagnosis for this admission?: Yes (9) Sepsis Qualifiers: Sepsis type: sepsis due to unspecified organism Sepsis acute organ dysfunction status: with acute organ dysfunction Severe sepsis acute organ dysfunction type: acute liver failure Severe sepsis shock status: with septic shock Is this a current diagnosis for this admission?: Yes (10) Upper GI bleed Is this a current diagnosis for this admission?: Yes (11) ETOH abuse Is this a current diagnosis for this admission?: Yes (12) Comfort measures only status Is this a current diagnosis for this admission?: Yes - Plan Summary Plan Summary: Spoke with at bedside regarding patient. Currently she is hospice which she was made yesterday evening. From what I understand family did not want any further treatment for her given her multiorgan failure secondary to septic faith ck. She has been downgraded from the ICU and will be moved when bed is available. At this time we are utilizing IV morphine and Ativan for comfort measures. I did speak with about her NG tube and oxygen and we are waiting for daughter to come and decide whether we should stop supplemental oxygen and NG tube.
[2019-03-12] MEDS ORDERED: VANCOMYCIN HCL 1,000 MG in DEXTROSE 5%-WATER 250 ML IV SCH (10:00)
--- NOTE | 2019-03-13 08:02 | Death Summary ---
Summary Autopsy: No Resuscitation Status: Comfort Measures Only - Final Diagnosis (1) Acute renal failure Is this a current diagnosis for this admission?: Yes (2) Acute respiratory failure with hypoxia Is this a current diagnosis for this admission?: Yes (3) Altered mental status Is this a current diagnosis for this admission?: Yes (4) Cirrhosis Is this a current diagnosis for this admission?: Yes (5) Dehydration Is this a current diagnosis for this admission?: Yes (6) Hepatic encephalopathy Is this a current diagnosis for this admission?: Yes (7) Hyperammonemia Is this a current diagnosis for this admission?: Yes (8) Hyponatremia Is this a current diagnosis for this admission?: Yes (9) Sepsis Is this a current diagnosis for this admission?: Yes (10) Upper GI bleed Is this a current diagnosis for this admission?: Yes (11) ETOH abuse Is this a current diagnosis for this admission?: Yes (12) Comfort measures only status Is this a current diagnosis for this admission?: Yes Hospital Course:: 58-year-old female who was found at home unresponsive with alcohol bottles was brought to the emergency by EMS and sepsis and multiorgan failure. Was admitted to the ICU. She was started on IV fluids and IV antibiotics immediately. Due to an CHAPARRITA nephrology was consulted and it was felt that it was due to sepsis. She was also found to have hyperammonemia, hyponatremia, pancreatitis and later had upper GI bleed. Despite medical management her status continued to decline and hospitalist had discussion with family and she was made comfort measures prior to me assuming care. She was transferred out of the ICU to the general medical floor where she on 03/12/19 at 00:57.
== END 2019-03-12 05:37 | DRG 871 ==
LOC: ER 13:00 → EH 16:36 → ICU 18:36 → 4N 03-11 17:43
PROVIDERS: ADMIT Hospitalist; ATTEND Hospitalist
PROC: 02HV33Z Insertion of Infusion Device into Superior Vena Cava, Percutaneous Approach (ICD-10-PCS; principal; 2019-03-10)
DX: A41.9 Sepsis, unspecified organism (principal); R65.21 Severe sepsis with septic shock; J96.01 Acute respiratory failure with hypoxia; K72.00 Acute and subacute hepatic failure without coma; K85.20 Alcohol induced acute pancreatitis without necrosis or infection; E72.20 Disorder of urea cycle metabolism, unspecified; N17.9 Acute kidney failure, unspecified; K92.0 Hematemesis; E87.1 Hypo-osmolality and hyponatremia; K70.30 Alcoholic cirrhosis of liver without ascites; E87.6 Hypokalemia; E87.5 Hyperkalemia; E83.42 Hypomagnesemia; E86.0 Dehydration; F10.10 Alcohol abuse, uncomplicated; Y90.0 Blood alcohol level of less than 20 mg/100 ml
CPT/HCPCS: 36415; 70450; 71045; 74018; 74176; 80053; 80307; 81001; 82140; 82550; 82553; 82803; 82962; 83605; 83690; 83735; 84100; 84484; 85025; 85610; 85730; 86850; 86900; 86901; 87040; 87070; 87077; 87086; 87186; 93005; 93010; 94660; 96361; 96365; 96375; 99291; C1751; C1769; J1265; J1630; J1642; J2060; J2250; J2270; J2354; J2370; J2405; J2543; J3360; J3370; J3430; J3475; J3480; J3490; J7030; J7040; J7050; J7060; J7120; P9047; S0164